=== PATIENT | male | born 1960 | race Caucasian/White ===

== ENCOUNTER 2016-11-24 18:33 | Inpatient (IN) | payer MEDICAID ==
[2016-11-24] MEDS: HYDROmorphONE/DILAUDID 6 MG/30 ML PCA IV PRN (02:00)
[2016-11-24] MEDS ORDERED: NS 1,000 ML IV ONE ×2 (18:57→20:05)
[2016-11-24] MEDS ORDERED: fentaNYL 100 MCG/2 ML INJ IVP ONE ×2 (18:58→20:01)
[2016-11-24 19:10] LABS: % IMMATURE GRANULYOCYTES 0.3 % (0.0-1.1); ABSOLUTE IMMATURE GRANULOCYTES 0.01 10^3/uL (0.00-0.10); ADD DIFF? NO; ADD MORPH? NO; ADD SCAN? NO; ATYPICAL LYMPHOCYTE FLAG 0 (0-99); FRAGMENT RBC FLAG 0 (0-99); HEMATOCRIT 42.9 % (40.0-51.0); HEMOGLOBIN 14.6 g/dL (13.7-17.5); LEFT SHIFT FLG 0 (0-99); LIPEMIA HEMOLYSIS FLAG 90 (0-99); MEAN CELL HEMOGLOBIN 30.4 pg (27.9-34.1); MEAN CELL VOLUME 89.2 fL (81.5-99.8); MEAN PLATELET VOLUME 9.3 fL (8.7-11.7); PLATELET CLUMPS FLAG 0 (0-99); PLATELET COUNT 132 10^3/uL (150-400); RED BLOOD CELL COUNT 4.81 10^6/uL (4.40-6.38); RED CELL DISTRIBUTION WIDTH 14.9 % (11.5-15.2)
[2016-11-24] MEDS ORDERED: fentaNYL 100 MCG/2 ML INJ ONE (19:16)
[2016-11-24] MEDS ORDERED: MIDAZOLAM 2 MG/2 ML VIAL IVP ONE ×2 (19:20→19:40)
[2016-11-24] MEDS ORDERED: MIDAZOLAM 2 MG/2 ML VIAL ONE ×3 (19:21→22:21)
[2016-11-24 19:26] LABS: ANION GAP 16 mEq/L (8-16); CALCIUM 9.8 mg/dL (8.5-10.4); CARBON DIOXIDE 30 mEq/l (22-31); CHLORIDE 92 mEq/L (97-110); CREATININE 0.9 mg/dL (0.7-1.3); GLOMERULAR FILTRATION RATE > 60; GLUCOSE 108 mg/dL (70-100); SODIUM 138 mEq/L (134-144)
[2016-11-24] MEDS ORDERED: HYDROmorphONE/DILAUDID 1 MG/ML SYR IVP ONE ×4 (19:45→21:55)
[2016-11-24] MEDS ORDERED: HYDROmorphONE/DILAUDID 1 MG/ML SYR ONE ×2 (19:45→21:55)
[2016-11-24 20:04] LABS: INR 1.07 (0.83-1.16); PROTIME(PATIENT) 13.7 SEC (12.0-15.0)
[2016-11-24 20:05] LABS: APTT 31.7 SEC (23.0-38.0)
--- NOTE | 2016-11-24 20:06 | UCPHY ---
H & P Patient Type: Established Chief Complaint Nursing Narrative: UNABLE TO REDUCE HERNIA, HAS HAD FOR 2 HRS. LAST EPISODE LIKE THIS WAS 2 YR AGO. HAS THIS HERNIA CONSTANTLY Time Seen by Provider: 11/24/16 18:47 HPI/ROS: This pt. 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 He has had this hernia for years. He has been holding off on repair because he is on the transplant list for liver transplant due to hepatitis C related cirrhosis. He has mild to moderate ascites at baseline with no recent changes. His last meal was at 4:00 p.m. tonight. ROS: No fevers. Mild nausea but no vomiting. He reports 2-4 loose stools a day on lactulose. 10 point ROS is otherwise negative. Source: Patient Exam Limitations: No limitations - Personal History Current Tetanus/Diphtheria Vaccine: Yes Tetanus Vaccine Date: 2008 - Medical/Surgical History PMH: Former IVDA hep C-no illicit drug use for several years Hx Asthma: No Hx Chronic Respiratory Disease: No Hx Diabetes: No Hx Cardiac Disease: No Hx Renal Disease: No Hx Cirrhosis: Yes Hx Alcoholism: No Hx HIV/AIDS: No Hx Splenectomy or Spleen Trauma: No Other PMH: Hep C-RESOLVED 2013, insomnia, enchephalopathy, on liver transplant list, ulcerative colitis,UMB HERNIA, - Family History Significant Family History: No pertinent family hx - Social History Smoking Status: Never smoked Alcohol Use: None Drug Use: None - Physical Exam Exam: General Appearance: Alert, no distress. Eyes: Pupils equal and round no pallor or injection. ENT, Mouth: Mucous membranes moist. Respiratory: There are no retractions, lungs are clear to auscultation. Cardiovascular: Regular rate and rhythm. Gastrointestinal: Normoactive, soft, patient has a 12 x 9 cm bulge that is softball size and moderately tender. This is periumbilical extending to the left of the umbilicus. No significant erythema associated with this. No ecchymosis. Neurological: Alert. No focal deficits Skin: Warm and dry, no rashes. Musculoskeletal: Neck is supple nontender. Extremities are symmetrical, full range of motion. Psychiatric: Mood and affect are normal DIFFERENTIAL DIAGNOSIS: After history and physical exam differential diagnosis was considered for large hernia, incarcerated hernia Constitutional: Initial Vital Signs Temperature (C) 36.3 C 11/24/16 18:39 Heart Rate 72 11/24/16 18:39 Respiratory Rate 22 H 11/24/16 18:39 Blood Pressure 131/89 H 11/24/16 18:39 O2 Sat (%) 97 11/24/16 18:39 O2 Delivery Mode Room Air Allergies/Adverse Reactions: No Known Allergies Allergy (Verified 11/24/16 18:37) Home Medications: Medication Instructions Recorded Zolpidem Tartrate [Ambien 5MG (*)] 5 - 10 mg PO HS PRN #10 tab 03/14/12 sulfaSALAzine [Azulfidine 500 MG 2,000 mg PO Q12 #120 tab 03/14/12 (*)] Lasix 03/22/15 Oxymorphone HCl 03/22/15 LACTULOSE 11/24/16 Medical Decision Making Procedures: Procedure: Attempt at hernia reduction. After verbal consent, Patient is placed in the supine position with legs elevated, placed on a monitor and given IV analgesia-over 0.5 hour. Received a total of 200 mg of fentanyl 1 mg of Dilaudid and 4 mg versed. He remained conversational throughout the procedure. I applied steady pressure with both hands over the hernia with minimal amount of bowel reduced prior to reaching up point of stasis with no further bowel reduction in the patient with exquisite tenderness despite the medications. There were no complications but was unable to reduce the patient's hernia despite 30 minutes of steady manual pressure ED Course/Re-evaluation: IV, monitor-attempted reduction-procedure as above Patient is agreeable to admission for his apparent incarcerated hernia. I spoke with Corinne Ruiz-surgeon on-call who accepts the patient for transfer requests that goes through the emergency department at [facility]. I spoke with Dr. lAon Montgomery emergency physician at [facility] who accepts the patient for transfer - Data Points Laboratory Results: Laboratory Results 11/24/16 19:03 11/24/16 19:03 11/24/16 19:03 WBC 3.82 10^3/uL (3.80-9.50) RBC 4.81 10^6/uL (4.40-6.38) Hgb 14.6 g/dL (13.7-17.5) Hct 42.9 % (40.0-51.0) MCV 89.2 fL (81.5-99.8) MCH 30.4 pg (27.9-34.1) MCHC 34.0 g/dL (32.4-36.7) RDW 14.9 % (11.5-15.2) Plt Count 132 L 10^3/uL (150-400) MPV 9.3 fL (8.7-11.7) Neut % (Auto) 64.0 % (39.3-74.2) Lymph % (Auto) 19.1 % (15.0-45.0) [place]oux % (Auto) 13.4 H % (4.5-13.0) Eos % (Auto) 2.9 % (0.6-7.6) Baso % (Auto) 0.3 % (0.3-1.7) Nucleat RBC Rel Count 0.0 % (0.0-0.2) Absolute Neuts (auto) 2.45 10^3/uL (1.70-6.50) Absolute Lymphs (auto) 0.73 L 10^3/uL (1.00-3.00) Absolute Monos (auto) 0.51 10^3/uL (0.30-0.80) Absolute Eos (auto) 0.11 10^3/uL (0.03-0.40) Absolute Basos (auto) 0.01 L 10^3/uL (0.02-0.10) Absolute Nucleated RBC 0.00 10^3/uL (0-0.01) Immature Gran % 0.3 % (0.0-1.1) Immature Gran # 0.01 10^3/uL (0.00-0.10) PT 13.7 SEC (12.0-15.0) INR 1.07 (0.83-1.16) APTT 31.7 SEC (23.0-38.0) Sodium 138 mEq/L (134-144) Potassium 4.0 mEq/L (3.5-5.2) Chloride 92 L mEq/L (97-110) Carbon Dioxide 30 mEq/l (22-31) Anion Gap 16 mEq/L (8-16) BUN 14 mg/dL (7-23) Creatinine 0.9 mg/dL (0.7-1.3) Estimated GFR > 60 Glucose 108 H mg/dL (70-100) Calcium 9.8 mg/dL (8.5-10.4) Total Bilirubin 0.9 mg/dL (0.1-1.4) Conjugated Bilirubin 0.7 H mg/dL (0.0-0.5) Unconjugated Bilirubin 0.2 mg/dL (0.0-1.1) AST 39 IU/L (17-59) ALT 39 IU/L (21-72) Alkaline Phosphatase 184 H IU/L (38-126) Total Protein 8.8 H g/dL (6.3-8.2) Albumin 4.3 g/dL (3.5-5.0) Medications Given: Discontinued Medications Fentanyl (Sublimaze) 100 mcg IVP EDNOW ONE Stop: 11/24/16 18:59 Last Admin: 11/24/16 19:00 Dose: 100 mcg Fentanyl (Sublimaze) 100 mcg IVP EDNOW ONE Stop: 11/24/16 20:02 Last Admin: 11/24/16 19:15 Dose: 100 mcg Hydromorphone HCl (Dilaudid) 1 mg IVP EDNOW ONE Stop: 11/24/16 19:46 Last Admin: 11/24/16 19:45 Dose: 1 mg Sodium Chloride (Ns) 1,000 mls @ 0 mls/hr IV ONCE ONE PRN Reason: Wide Open Stop: 11/24/16 18:58 Last Admin: 11/24/16 19:00 Dose: 1,000 mls Sodium Chloride (Ns) 1,000 mls @ 0 mls/hr IV ONCE ONE PRN Reason: Wide Open Stop: 11/24/16 20:06 Last Admin: 11/24/16 19:50 Dose: 1,000 mls Midazolam HCl (Versed) 2 mg IVP ONCE ONE Stop: 11/24/16 19:21 Last Admin: 11/24/16 19:20 Dose: 2 mg Midazolam HCl (Versed) 2 mg IVP ONCE ONE Stop: 11/24/16 19:41 Last Admin: 11/24/16 19:40 Dose: 2 mg Departure - Departure Disposition: Home, Routine, Self-Care Clinical Impression: Incarcerated hernia Hepatitis C virus Qualifiers: Viral hepatitis chronicity: chronic Hepatic coma status: without hepatic coma Qualifier Code: (B18.2) Chronic viral hepatitis C Condition: Fair Referrals: [facility],. [Primary Care Provider] - As per Instructions - PQRS PQRS Measurement: NA
[2016-11-24 20:10] LABS: ALBUMIN 4.3 g/dL (3.5-5.0); BILIRUBIN,TOTAL 0.9 mg/dL (0.1-1.4); BILIRUBIN-CONJUGATED 0.7 mg/dL (0.0-0.5); BILIRUBIN-UNCONJUGATED 0.2 mg/dL (0.0-1.1); TOTAL PROTEIN 8.8 g/dL (6.3-8.2)
[2016-11-24] MEDS ORDERED: ERTAPENEM 1 GM in NS 100 ML IV ONE (22:01)
[2016-11-24] MEDS ORDERED: PROPOFOL/EMULSION 500 MG/50 ML BOTTLE IV ONE (22:04)
[2016-11-24] MEDS ORDERED: fentaNYL 250 MCG/5 ML INJ ONE (22:04)
[2016-11-24] MEDS ORDERED: ROCURONIUM 50 MG/5 ML VIAL ONE ×2 (22:11→23:28)
[2016-11-24] MEDS ORDERED: SUCCINYLCHOLINE CHLORIDE*ANESTHESIA ONLY*200 MG/10 ML SYR IVP ONE (22:11)
[2016-11-24] MEDS ORDERED: GLYCOPYRROLATE 0.2 MG/1 ML VIAL ONE (22:11)
[2016-11-24] MEDS ORDERED: NEOSTIGMINE METHYLSULFATE 5 MG/5 ML SYR ONE (22:11)
[2016-11-24] MEDS ORDERED: ONDANSETRON 4 MG/2 ML VIAL ONE (22:11)
[2016-11-24] MEDS ORDERED: LIDOCAINE 2% 5 ML SDV ONE (22:11)
[2016-11-24] MEDS ORDERED: METOCLOPRAMIDE 10 MG/2 ML VIAL ONE (22:11)
[2016-11-24] MEDS ORDERED: ONDANSETRON 4 MG/2 ML VIAL IVP PRN (22:25)
[2016-11-24] MEDS ORDERED: NALOXONE HCL 0.4 MG/ML INJ IVP PRN (22:25)
[2016-11-24] MEDS ORDERED: HYDROmorphONE/DILAUDID 1 MG/ML SYR IVP PRN (22:30)
[2016-11-24] MEDS ORDERED: PROTOCOL MAGNESIUM 1 DOSE IV PRN (22:31)
[2016-11-24] MEDS ORDERED: PROTOCOL POTASSIUM 1 DOSE MISC PRN (22:31)
--- NOTE | 2016-11-24 23:13 | GHP ---
[f rep st] HISTORY AND PHYSICAL DATE OF ADMISSION: 11/24/2016 HISTORY OF PRESENT ILLNESS: Jose is a 55-year-old man with hepatitis C cirrhosis, who has had an um bilical hernia for at least 2 years. This afternoon the hernia became incarcerated and was associate d with severe pain. He presented to the urgent care center where his hernia was unable to be reduced with pain medication and sedation. His pain has been associated with nausea. PAST MEDICAL HISTORY: Ulcerative colitis, hepatitis C, cirrhosis, hypothyroidism. PAST SURGICAL HISTORY: None. MEDICATIONS: He takes levothyroxine 50 mcg daily. Ativan 10 mg 1-2 tablets nightly. Oxymorphone 30 mg twice daily and 10 mg 3 times daily. Lasix 40 mg 4 times daily. Sulfasalazine 500 mg twice maicol y. Lactulose 3-4 teaspoons daily and gabapentin 600 mg 3 times daily. ALLERGIES: He has no known drug allergies. FAMILY HISTORY: His daughter has ulcerative colitis. SOCIAL HISTORY: He is a nonsmoker. He has stopped IV drug use for several years. REVIEW OF SYSTEMS: He denied fevers, shortness of breath, chest pain, vomiting. He complains of mil d nausea and severe abdominal pain at the site of the hernia. He has chronic diarrhea from being on lactulose. PHYSICAL EXAM: VITAL SIGNS: His temperature is 36.3, pulse 74, blood pressure 142/87, respiratory r ate 20, he is saturating 99% on 2 L per nasal cannula. GENERAL: He is alert, in moderate distress, nonjaundiced. LUNGS: Clear to auscultation bilaterally. HEART: Regular rate and rhythm. ABDOMEN: Distended. He has a very large mass within an umbilical hernia which is non reducible with associa zeynep discoloration of the skin overlying the mass. LABS: His white count is 4, hematocrit 43, platelets 132. His INR is 1.1. Creatinine is 0.9, album in 4.3, bilirubin 0.9. ASSESSMENT AND PLAN: Incarcerated umbilical hernia. He will go to the operating room for exploratio n, reduction and repair of the hernia and the hernia sac contents. He may very well require a bowel resection if the viability of the bowel is compromised. At the time of exploration if this has occur red the umbilical hernia will have to be repaired primarily without the placement of mesh, due to the potential for bacterial seeding. If the bowel is viable, the hernia may be repaired with mesh. Stacey hernandez has been discussed with the patient and his friend and he will be going urgently to surgery within the hour. /[id number]/MODL
[2016-11-24] MEDS ORDERED: SKIN ADHESIVE (DERMABOND) 1 EACH TP ONE (23:54)
[2016-11-25] MEDS ORDERED: HYDROmorphONE/DILAUDID 2 MG/ML SYR ONE (00:24)
[2016-11-25] MEDS ORDERED: ONDANSETRON 4 MG/2 ML VIAL ONE (00:25)
[2016-11-25] MEDS: ZOLPIDEM TARTRATE 5 MG TAB PO PRN ×2 (01:34→20:03)
--- NOTE | 2016-11-25 02:08 | GOP ---
[f rep st] OPERATIVE REPORT DATE OF OPERATION: SURGEON: Corinne Ruiz MD PREOPERATIVE DIAGNOSIS: Incarcerated umbilical hernia. POSTOPERATIVE DIAGNOSIS: Incarcerated umbilical hernia. PROCEDURE PERFORMED: Enterectomy and repair of incarcerated umbilical hernia. FINDINGS: Ischemic bowel strangulated within an umbilical hernia. SPECIMENS: Small bowel. ESTIMATED BLOOD LOSS: 200 mL. INDICATIONS: Jose is a 55-year-old man who has had a large umbilical hernia for at least 2 years. This became incarcerated today and was associated with severe pain. On arrival to the Urgent Care Ce nt it was noted to be irreducible. He opted for exploration, reduction and repair. DESCRIPTION OF PROCEDURE: After informed consent was obtained and preoperative antibiotics were admi nistered, the patient was taken to the operating room, placed in a supine position. SCDs were placed to bilateral lower extremities. General anesthesia was administered and he was prepped and draped i n a sterile fashion. After an appropriate surgical pause, local anesthetic was injected inferior to the umbilicus and a large infraumbilical incision made using a 10 blade. Bovie electrocautery was us ed to extend this incision through the subcutaneous tissue to the fascia. Then the large hernia sac was dissected circumferentially. The umbilical stalk was dissected from the hernia sac using Bovie e lectrocautery. The hernia sac was then opened and ascites fluid suctioned from the peritoneal cavity totaling approximately 3 L. There was ischemic small bowel noted to be within the hernia sac. The hernia sac was transected circumferentially at the level of the fascia and the fascial defect extende d using Metzenbaum scissors to allow further exploration and freeing of the bowel. Approximately an 8-10 cm segment of small intestine was noted to be ischemic. Viable points of resection proximally a nd distally were chosen and windows were created in the mesentery using hemostats. A NATHALIE stapling de vice was used to transect the small bowel proximal and distal to the ischemic bowel. The mesentery w as then serially clamped, transected and ligated using 3-0 Vicryl ties. The specimen was sent to [facility] for permanent assessment. The 2 limbs of viable bowel were then aligned using 3-0 Vicryl stay sutures. Enterotomies were made in each limb and a stapled [id number] anastomosis was created. T he enterotomy was closed in 2 layers using 3-0 Vicryl running suture for the full-thickness layer and interrupted 3-0 Vicryl seromuscular Lembert sutures for the 2nd layer. The staple lines were also o versewn using interrupted 3-0 Vicryl seromuscular Lembert sutures. The anastomosis was palpated and noted to be patent. It was then reduced back into the peritoneal cavity. The fascial defect was renee sed using 0 Surgilon suture. Biologic mesh was sutured to the anterior abdominal wall fascia over th e closed fascial defect using interrupted 3-0 Surgilon sutures. The umbilical stalk was re-tacked to the anterior abdominal wall using 3-0 Vicryl suture after hemostasis was noted. The redundant skin of the umbilicus was excised and the skin was closed in 2 layers using interrupted 3-0 Vicryl deep de rmal sutures and 4-0 Monocryl running subcuticular suture. Dermabond was applied. Once the patient is awakened from general anesthesia, he will be extubated and taken to the post anesthesia recovery u jovanny. /[id number]/MODL
[2016-11-25] MEDS: LEVOTHYROXINE 50 MCG TAB PO SCH (05:59)
[2016-11-25 06:25] LABS: % IMMATURE GRANULYOCYTES 0.1 % (0.0-1.1); ABSOLUTE IMMATURE GRANULOCYTES 0.01 10^3/uL (0.00-0.10); ADD DIFF? NO; ADD MORPH? NO; ADD SCAN? NO; ATYPICAL LYMPHOCYTE FLAG 10 (0-99); FRAGMENT RBC FLAG 0 (0-99); HEMATOCRIT 43.3 % (40.0-51.0); HEMOGLOBIN 14.5 g/dL (13.7-17.5); LEFT SHIFT FLG 30 (0-99); LIPEMIA HEMOLYSIS FLAG 80 (0-99); MEAN CELL HEMOGLOBIN 30.2 pg (27.9-34.1); MEAN CELL HEMOGLOBIN CONCENTR. 33.5 g/dL (32.4-36.7); MEAN CELL VOLUME 90.2 fL (81.5-99.8); MEAN PLATELET VOLUME 9.2 fL (8.7-11.7); PLATELET CLUMPS FLAG 0 (0-99); PLATELET COUNT 119 10^3/uL (150-400); RED CELL DISTRIBUTION WIDTH 14.8 % (11.5-15.2)
[2016-11-25] MEDS ORDERED: DIAZEPAM 10 MG/2 ML SYR IVP PRN (06:39)
[2016-11-25 06:52] LABS: ANION GAP 12 mEq/L (8-16); CALCIUM 8.9 mg/dL (8.5-10.4); CARBON DIOXIDE 27 mEq/l (22-31); CHLORIDE 97 mEq/L (97-110); CREATININE 0.8 mg/dL (0.7-1.3); GLOMERULAR FILTRATION RATE > 60; GLUCOSE 177 mg/dL (70-100); MAGNESIUM 1.9 mg/dL (1.6-2.3); POTASSIUM 4.1 mEq/L (3.5-5.2); SODIUM 136 mEq/L (134-144)
[2016-11-25] MEDS: HYDROmorphONE/DILAUDID 6 MG/30 ML PCA IV PRN ×4 (07:45→14:24)
[2016-11-25] MEDS ORDERED: LORazepam 2 MG/ML INJ IVP PRN (07:56)
--- NOTE | 2016-11-25 09:04 | GCON ---
[f rep st] CONSULTATION REASON FOR CONSULTATION: Medical management. HISTORY OF PRESENT ILLNESS: A 55-year-old male with a history of hepatitis C and cirrhosis, who pres ents with acute abdominal pain. The patient describes sudden onset of severe abdominal pain a couple of hours before he presented to the emergency department. It was associated with hernia that he was aware of. Patient describes simply not disimpacting it quickly enough. Presented to the emergency department with severe pain he was not able to control with associated nausea. No vomiting. The pat ient denies any preceding shortness of breath, chest pain, lightheadedness, vision changes, dysphagia , vomiting. He has been running a little constipated preceding this event. Denies any melena or hem atochezia, dysuria, hematuria. PAST MEDICAL HISTORY: 1. Hepatitis C. 2. Cirrhosis secondary to hepatitis C. 3. History of ulcerative colitis. 4. Hypothyroidism. 5. History of a pulmonary embolism following knee surgery. 6. History of alcoholism and heroin addiction. Sober for many years. SOCIAL HISTORY: Patient is . Sober. No tobacco, alcohol or illicit drugs. FAMILY HISTORY: Positive for heart disease. REVIEW OF SYSTEMS: A 10-point review of systems is negative with the exception of that reported in t he HPI. PHYSICAL EXAMINATION: VITAL SIGNS: Blood pressure 130/80, heart rate 55, respiratory rate 18, 98% o n 2 L. GENERAL: This is a thin-appearing male in mild distress. HEENT: Notable for dry mucous memb ranes. Eye exam is negative for any icterus. CARDIAC: Patient is regular rate and rhythm. PULMONA RY: Clear to auscultation bilaterally. GASTROINTESTINAL: The patient has no bowel sounds. Abdomen is markedly tender postoperative. MUSCULOSKELETAL: Negative for any lower extremity edema. SKIN: Negative for any rashes. NEUROLOGIC: Patient is alert and oriented x3. PSYCHIATRIC: He is pleasa nt and cooperative on interview and examination. LABORATORY DATA: Preoperative data: White count 3.8, hematocrit 42.9, platelets of 132. INR 1.07. Creatinine 0.9, alkaline phosphatase 184, AST 33, ALT 39. Telemetry in the emergency department which I personally reviewed and interpreted showed sinus rhythm . ASSESSMENT AND PLAN: This is a 55-year-old male with an incarcerated hernia presenting with abdomina l pain. 1. Acute incarceration of the hernia. Patient was taken immediately to the operating room for enter ectomy and repair of the umbilical hernia. 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 Will continue IV fluid resuscitation, his n.p.o. status and follow General Surgery's l ead on his postsurgical management. 2. Cirrhosis. Patient's medical management has been well titrated over the course of the last coupl e of years on diuretics. Will hold these when the medications are reconciled, as well as hold his la ctulose as he is currently n.p.o. 3. Ulcerative colitis. Patient is on p.o. medications for this as well. We can continue these when he is cleared for oral medications by Surgery. 4. Prophylaxis when cleared by Surgery. 5. Diet: N.p.o. DISPOSITION: I expect greater than 2 midnights as the patient has only recently come out of the oper ating room with marked pain. Will need to be slowly titrated to an oral diet with effective pain con trol. I have discussed the case with the RN this morning. Thank you for the consultation. Will follow along. /[id number]/MODL
[2016-11-25] MEDS: LR 1,000 ML IV SCH ×2 (09:51→17:49)
--- NOTE | 2016-11-25 13:17 | SOAPPROG ---
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 no flatus Objective: Vital Signs Temp Pulse Resp BP Pulse Ox 36.6 C 71 16 138/85 H 97 11/25/16 11:14 11/25/16 11:14 11/25/16 11:14 11/25/16 11:14 11/25/16 11:14 Laboratory Results 11/25/16 06:14 11/25/16 06:14 11/24/16 11/25/16 11/26/16 05:59 05:59 05:59 Intake Total 800 Output Total 500 400 Balance 300 -400 PT 13.7 SEC (12.0-15.0) 11/24/16 19:03 INR 1.07 (0.83-1.16) 11/24/16 19:03 Physical Exam - Physical Exam General Appearance: alert Respiratory: lungs clear Cardiac/Chest: regular rate, rhythm Abdomen: soft, distended, other (hypoactive bowel sounds, dressing C/D/I) ICD10 Worksheet Patient Problems: Problems Problem Status Diagnosed Hepatitis C virus Acute Incarcerated hernia Acute
[2016-11-25] MEDS: DIAZEPAM 10 MG/2 ML SYR IVP PRN ×2 (13:50→20:03)
[2016-11-25 19:59] LABS: POTASSIUM 4.4 mEq/L (3.5-5.2)
[2016-11-26] MEDS: ZOLPIDEM TARTRATE 5 MG TAB PO PRN ×2 (01:19→21:32)
[2016-11-26] MEDS: HYDROmorphONE/DILAUDID 6 MG/30 ML PCA IV PRN ×5 (01:25→21:45)
[2016-11-26] MEDS: LR 1,000 ML IV SCH ×2 (01:25→09:39)
[2016-11-26 06:19] LABS: % IMMATURE GRANULYOCYTES 0.4 % (0.0-1.1); ABSOLUTE IMMATURE GRANULOCYTES 0.02 10^3/uL (0.00-0.10); ADD DIFF? NO; ADD MORPH? NO; ADD SCAN? NO; ATYPICAL LYMPHOCYTE FLAG 0 (0-99); FRAGMENT RBC FLAG 0 (0-99); HEMATOCRIT 40.9 % (40.0-51.0); HEMOGLOBIN 13.7 g/dL (13.7-17.5); LEFT SHIFT FLG 10 (0-99); LIPEMIA HEMOLYSIS FLAG 80 (0-99); MEAN CELL HEMOGLOBIN 30.4 pg (27.9-34.1); MEAN CELL HEMOGLOBIN CONCENTR. 33.5 g/dL (32.4-36.7); MEAN CELL VOLUME 90.9 fL (81.5-99.8); PLATELET CLUMPS FLAG 0 (0-99); PLATELET COUNT 111 10^3/uL (150-400); RED CELL DISTRIBUTION WIDTH 14.8 % (11.5-15.2)
[2016-11-26] MEDS: LEVOTHYROXINE 50 MCG TAB PO SCH (06:31)
[2016-11-26 07:04] LABS: ANION GAP 8 mEq/L (8-16); CALCIUM 9.1 mg/dL (8.5-10.4); CARBON DIOXIDE 28 mEq/l (22-31); CHLORIDE 98 mEq/L (97-110); CREATININE 0.7 mg/dL (0.7-1.3); GLOMERULAR FILTRATION RATE > 60; GLUCOSE 115 mg/dL (70-100); POTASSIUM 4.3 mEq/L (3.5-5.2); SODIUM 134 mEq/L (134-144)
[2016-11-26] MEDS: DIAZEPAM 10 MG/2 ML SYR IVP PRN ×3 (08:26→21:31)
[2016-11-26] MEDS ORDERED: LACTULOSE 20 GM/30 ML UDCUP PO PRN (10:57)
--- NOTE | 2016-11-26 12:45 | SOAPPROG ---
[facility] Progress Note Assessment/Plan: Assessment: s/p enterectomy and umbilical hernia repair for strangulated hernia cirrhosis Plan: clear liquids resume lactulose and diuretics add toradol for pain 11/26/16 12:43 Objective: Vital Signs Temp Pulse Resp BP Pulse Ox 36.9 C 69 16 139/85 H 96 11/26/16 08:19 11/26/16 08:19 11/26/16 08:19 11/26/16 08:19 11/26/16 08:19 Laboratory Results 11/26/16 05:54 11/26/16 05:54 11/25/16 11/26/16 11/27/16 05:59 05:59 05:59 Intake Total 800 3158 Output Total 500 1150 Balance 300 2008 PT 13.7 SEC (12.0-15.0) 11/24/16 19:03 INR 1.07 (0.83-1.16) 11/24/16 19:03 Physical Exam - Physical Exam General Appearance: alert Respiratory: lungs clear Cardiac/Chest: regular rate, rhythm Abdomen: soft, distended, other (hypoactive bowel sounds, incision without erythema) ICD10 Worksheet Patient Problems: Problems Problem Status Diagnosed Hepatitis C virus Acute Incarcerated hernia Acute
[2016-11-26] MEDS: SPIRONOLACTONE 25 MG TAB PO SCH (14:08)
[2016-11-26] MEDS: FUROSEMIDE 40 MG TAB PO SCH (14:09)
[2016-11-26] MEDS: GABAPENTIN 300 MG CAP PO PRN (14:09)
--- NOTE | 2016-11-26 15:26 | HOSPPROG ---
Hospitalist Progress Note Assessment/Plan: This is a 55-year-old male with history of hepatitis-C, cirrhosis, and ulcerative colitis who is admitted by General surgery on 11/23/2016 with an incarcerated hernia # hepatitis-C with cirrhosis -will resume the patient's home diuretics and monitor blood pressure and renal function # Ulcerative colitis -resume sulfa Stelazine once taking p.o. was # with postoperative day 2 incarcerated hernia repair -continue routine postop care per Dr. Ruiz Subjective: the patient continues to have abdominal pain. He is tolerating some sips of water. He denies any fevers or chills. He is having some flatus but denies any diarrhea or bowel movements. Objective: Vital Signs Temp Pulse Resp BP Pulse Ox 36.6 C 72 16 137/84 H 95 11/26/16 12:40 11/26/16 12:40 11/26/16 12:40 11/26/16 12:40 11/26/16 12:40 Laboratory Results 11/26/16 05:54 11/26/16 05:54 11/25/16 11/26/16 11/27/16 05:59 05:59 05:59 Intake Total 800 3158 Output Total 500 1150 Balance 300 2008 PT 13.7 SEC (12.0-15.0) 11/24/16 19:03 INR 1.07 (0.83-1.16) 11/24/16 19:03 - Physical Exam Constitutional: no apparent distress, appears nourished, not in pain Ears, Nose, Mouth, Throat: moist mucous membranes, hearing normal, ears appear normal, no oral mucosal ulcers Cardiovascular: regular rate and rhythym, no murmur, rub, or gallop Respiratory: no respiratory distress, no rales or rhonchi, clear to auscultation Gastrointestinal: distension, other ( Hypoactive bowel sounds), No guarding, No rebound Skin: no rashes or abrasions, no fluctuance, no induration ICD10 Worksheet Patient Problems: Problems Problem Status Diagnosed Hepatitis C virus Acute Incarcerated hernia Acute
[2016-11-26] MEDS: KETOROLAC 15 MG/1 ML SDV IVP SCH (18:05)
[2016-11-27] MEDS: KETOROLAC 15 MG/1 ML SDV IVP SCH ×3 (00:08→11:14)
[2016-11-27] MEDS: DIAZEPAM 10 MG/2 ML SYR IVP PRN ×2 (02:24→08:07)
[2016-11-27] MEDS: ZOLPIDEM TARTRATE 5 MG TAB PO PRN ×2 (02:24→20:00)
[2016-11-27 05:47] LABS: % IMMATURE GRANULYOCYTES 0.5 % (0.0-1.1); ABSOLUTE IMMATURE GRANULOCYTES 0.02 10^3/uL (0.00-0.10); ADD DIFF? NO; ADD MORPH? NO; ADD SCAN? NO; ATYPICAL LYMPHOCYTE FLAG 20 (0-99); FRAGMENT RBC FLAG 0 (0-99); HEMATOCRIT 40.1 % (40.0-51.0); HEMOGLOBIN 13.6 g/dL (13.7-17.5); LEFT SHIFT FLG 10 (0-99); LIPEMIA HEMOLYSIS FLAG 90 (0-99); MEAN CELL HEMOGLOBIN 30.8 pg (27.9-34.1); MEAN CELL HEMOGLOBIN CONCENTR. 33.9 g/dL (32.4-36.7); MEAN CELL VOLUME 90.7 fL (81.5-99.8); MEAN PLATELET VOLUME 9.6 fL (8.7-11.7); PLATELET CLUMPS FLAG 0 (0-99); PLATELET COUNT 94 10^3/uL (150-400); RED BLOOD CELL COUNT 4.42 10^6/uL (4.40-6.38); RED CELL DISTRIBUTION WIDTH 14.6 % (11.5-15.2)
[2016-11-27 06:03] LABS: ANION GAP 7 mEq/L (8-16); CALCIUM 8.9 mg/dL (8.5-10.4); CARBON DIOXIDE 28 mEq/l (22-31); CHLORIDE 98 mEq/L (97-110); CREATININE 0.8 mg/dL (0.7-1.3); GLOMERULAR FILTRATION RATE > 60; GLUCOSE 100 mg/dL (70-100); POTASSIUM 4.3 mEq/L (3.5-5.2); SODIUM 133 mEq/L (134-144)
[2016-11-27] MEDS: LEVOTHYROXINE 50 MCG TAB PO SCH (06:07)
[2016-11-27] MEDS: HYDROmorphONE/DILAUDID 6 MG/30 ML PCA IV PRN ×2 (07:59→11:14)
[2016-11-27] MEDS: FUROSEMIDE 40 MG TAB PO SCH (07:59)
[2016-11-27] MEDS: SPIRONOLACTONE 25 MG TAB PO SCH (07:59)
[2016-11-27] MEDS: GABAPENTIN 300 MG CAP PO PRN ×3 (08:07→20:00)
--- NOTE | 2016-11-27 12:45 | SOAPPROG ---
[facility] Progress Note Assessment/Plan: Assessment: s/p enterectomy and umbilical hernia repair for strangulated hernia cirrhosis Plan: regular diet oral analgesia 11/27/16 12:43 Subjective: tolerated clears ambulated this morning Objective: Vital Signs Temp Pulse Resp BP Pulse Ox 36.4 C 85 16 122/94 H 96 11/27/16 11:06 11/27/16 11:06 11/27/16 11:06 11/27/16 11:06 11/27/16 11:06 Laboratory Results 11/27/16 04:58 11/27/16 04:58 11/26/16 11/27/16 11/28/16 05:59 05:59 05:59 Intake Total 3158 400 1634 Output Total 1150 280 Balance 2007 120 1634 PT 13.7 SEC (12.0-15.0) 11/24/16 19:03 INR 1.07 (0.83-1.16) 11/24/16 19:03 Physical Exam - Physical Exam General Appearance: alert Respiratory: lungs clear Cardiac/Chest: regular rate, rhythm Abdomen: normal bowel sounds, soft, distended, other (incision healing well, no ascites leak) ICD10 Worksheet Patient Problems: Problems Problem Status Diagnosed Hepatitis C virus Acute Incarcerated hernia Acute
[2016-11-27] MEDS ORDERED: morphINE SR 30 MG TAB PO SCH (13:00)
[2016-11-27] MEDS ORDERED: OXYMORPHONE HCL 10 MG PO PRN (13:21)
--- NOTE | 2016-11-27 14:22 | HOSPPROG ---
Hospitalist Progress Note Assessment/Plan: This is a 55-year-old male with history of hepatitis-C, cirrhosis, and ulcerative colitis who is admitted by General surgery on 11/23/2016 with an incarcerated hernia # hepatitis-C with cirrhosis -will resume the patient's home diuretics and monitor blood pressure and renal function # Ulcerative colitis -resume sulfasalazine once taking p.o. #h/o chronic pain/chronic continuous opioid dependency -resume home dose of opana # with postoperative day 2 incarcerated hernia repair -continue routine postop care per Dr. Ruiz Subjective: tolerating diet. reports flatus. no fever or chills. pain controlled Objective: Vital Signs Temp Pulse Resp BP Pulse Ox 36.4 C 85 16 122/94 H 96 11/27/16 11:06 11/27/16 11:06 11/27/16 11:06 11/27/16 11:06 11/27/16 11:06 Laboratory Results 11/27/16 04:58 11/27/16 04:58 11/26/16 11/27/16 11/28/16 05:59 05:59 05:59 Intake Total 3158 400 1634 Output Total 1150 280 Balance 2007 120 1634 PT 13.7 SEC (12.0-15.0) 11/24/16 19:03 INR 1.07 (0.83-1.16) 11/24/16 19:03 - Physical Exam Constitutional: no apparent distress, not in pain, chronically ill appearing Cardiovascular: regular rate and rhythym, no murmur, rub, or gallop Respiratory: no respiratory distress, no rales or rhonchi, clear to auscultation Gastrointestinal: distension, other (hypoactive bowel sounds), No guarding, No rebound Neurologic: AAOx3, sensation intact bilaterally ICD10 Worksheet Patient Problems: Problems Problem Status Diagnosed Hepatitis C virus Acute Incarcerated hernia Acute
[2016-11-27] MEDS: morphINE SR 30 MG TAB PO SCH ×2 (15:43→22:41)
[2016-11-27] MEDS: IBUPROFEN 600 MG TAB PO SCH ×2 (15:43→20:00)
[2016-11-27] MEDS: DIAZEPAM 2 MG TAB PO PRN (20:00)
[2016-11-27] MEDS ORDERED: CALCIUM CARBONATE 500 MG CHEWABLE TAB PO PRN (20:18)
[2016-11-27] MEDS ORDERED: FAMOTIDINE 20 MG TAB PO PRN (20:18)
[2016-11-28] MEDS: ZOLPIDEM TARTRATE 5 MG TAB PO PRN ×3 (00:24→23:54)
[2016-11-28] MEDS: GABAPENTIN 300 MG CAP PO PRN ×3 (05:03→21:09)
[2016-11-28] MEDS: IBUPROFEN 600 MG TAB PO SCH ×4 (05:03→21:09)
[2016-11-28] MEDS: LEVOTHYROXINE 50 MCG TAB PO SCH (05:04)
[2016-11-28] MEDS: DIAZEPAM 2 MG TAB PO PRN ×3 (05:04→21:09)
--- NOTE | 2016-11-28 07:58 | SOAPPROG ---
SOAP Progress Note Assessment/Plan: Assessment: s/p enterectomy and umbilical hernia repair for strangulated hernia cirrhosis cellulitis of wound Plan: scheduled lactulose augmentin for wound cellulitis continue ambulation 11/28/16 07:56 Subjective: no BM but hasn't been receiving any lactulose ambulating Objective: Vital Signs Temp Pulse Resp BP Pulse Ox 36.4 C 68 18 94/59 L 94 11/28/16 07:44 11/28/16 07:44 11/28/16 07:44 11/28/16 07:44 11/28/16 07:44 Laboratory Results 11/27/16 04:58 11/27/16 04:58 11/27/16 11/28/16 11/29/16 05:59 05:59 05:59 Intake Total 400 3084 Output Total 280 400 Balance 120 3084 -400 PT 13.7 SEC (12.0-15.0) 11/24/16 19:03 INR 1.07 (0.83-1.16) 11/24/16 19:03 Physical Exam - Physical Exam General Appearance: alert Respiratory: lungs clear Cardiac/Chest: regular rate, rhythm Abdomen: normal bowel sounds, distended, other (incision with mild erythema surrounding it, no ascites leak) ICD10 Worksheet Patient Problems: Problems Problem Status Diagnosed Hepatitis C virus Acute Incarcerated hernia Acute
[2016-11-28] MEDS: AMOX/CLAVULANATE 500/125 MG TAB PO SCH ×2 (08:42→21:08)
[2016-11-28] MEDS: LACTULOSE 20 GM/30 ML UDCUP PO SCH ×3 (08:42→21:10)
[2016-11-28] MEDS: SPIRONOLACTONE 25 MG TAB PO SCH (08:42)
[2016-11-28] MEDS: morphINE SR 30 MG TAB PO SCH ×3 (08:42→21:09)
[2016-11-28] MEDS: FUROSEMIDE 40 MG TAB PO SCH (08:42)
--- NOTE | 2016-11-28 14:39 | HOSPPROG ---
Hospitalist Progress Note Assessment/Plan: This is a 55-year-old male with history of hepatitis-C, cirrhosis, and ulcerative colitis who is admitted by General surgery on 11/23/2016 with an incarcerated hernia # hepatitis-C with cirrhosis -will resume the patient's home diuretics and monitor blood pressure and renal function # Ulcerative colitis -resume sulfasalazine once taking p.o. #h/o chronic pain/chronic continuous opioid dependency -cont mscontin/morphineIR as ordered # postoperative day 3 incarcerated hernia repair -continue routine postop care per Dr. Ruiz -augmentin ordered for possible wound infection Subjective: pain controlled. +flatus. tolerating diet Objective: Vital Signs Temp Pulse Resp BP Pulse Ox 36.5 C 73 18 110/74 96 11/28/16 11:57 11/28/16 11:57 11/28/16 11:57 11/28/16 11:57 11/28/16 11:57 Laboratory Results 11/27/16 04:58 11/27/16 04:58 11/27/16 11/28/16 11/29/16 05:59 05:59 05:59 Intake Total 400 3084 Output Total 280 400 Balance 120 3084 -400 PT 13.7 SEC (12.0-15.0) 11/24/16 19:03 INR 1.07 (0.83-1.16) 11/24/16 19:03 - Physical Exam Constitutional: no apparent distress, appears nourished, not in pain Cardiovascular: regular rate and rhythym, no murmur, rub, or gallop Respiratory: no respiratory distress, no rales or rhonchi, clear to auscultation Gastrointestinal: distension, other (hypoactive bowel sounds), No guarding, No rebound ICD10 Worksheet Patient Problems: Problems Problem Status Diagnosed Hepatitis C virus Acute Incarcerated hernia Acute
[2016-11-29] MEDS: DIAZEPAM 2 MG TAB PO PRN ×2 (03:55→09:56)
[2016-11-29] MEDS: LEVOTHYROXINE 50 MCG TAB PO SCH (06:12)
[2016-11-29] MEDS: IBUPROFEN 600 MG TAB PO SCH (06:12)
[2016-11-29 07:47] VITALS: BP 106/76; O2SAT 94
[2016-11-29] MEDS: GABAPENTIN 300 MG CAP PO PRN (07:58)
[2016-11-29] MEDS: morphINE SR 30 MG TAB PO SCH (07:58)
[2016-11-29] MEDS: FUROSEMIDE 40 MG TAB PO SCH (07:59)
[2016-11-29] MEDS: AMOX/CLAVULANATE 500/125 MG TAB PO SCH (07:59)
[2016-11-29] MEDS: SPIRONOLACTONE 25 MG TAB PO SCH (07:59)
--- NOTE | 2016-11-29 09:22 | SOAPPROG ---
DELANEY Progress Note Assessment/Plan: Assessment:s/p enterectomy + repair umbilical hernia doing well without complications thus far I am not convinced that he has a wound infection cirrhosis/HepC/chronic pain Plan:o.k to discharge home from surgical viewpoint FU Dr. Ruzi next week discussed restricted activity 11/29/16 09:20 11/29/16 09:23 Subjective: feeling better/4 BM's yesterday tolerating diet poor pain control/uses oxymorphone at home Objective: Vital Signs Temp Pulse Resp BP Pulse Ox 36.9 C 80 18 106/76 94 11/29/16 07:45 11/29/16 07:45 11/29/16 07:45 11/29/16 07:45 11/29/16 07:45 Laboratory Results 11/27/16 04:58 11/27/16 04:58 11/28/16 11/29/16 11/30/16 05:59 05:59 05:59 Intake Total 3084 1250 Output Total 400 Balance 3084 850 PT 13.7 SEC (12.0-15.0) 11/24/16 19:03 INR 1.07 (0.83-1.16) 11/24/16 19:03 Physical Exam - Physical Exam General Appearance: mild distress, cachetic (chronically ill appearing), thin Abdomen: normal bowel sounds, soft, distended, other (surgical incision with moderate bruising, no drainage/warmth) ICD10 Worksheet Patient Problems: Problems Problem Status Diagnosed Hepatitis C virus Acute Incarcerated hernia Acute
[2016-11-29] MEDS: LACTULOSE 20 GM/30 ML UDCUP PO SCH (10:59)
[2016-11-29 11:07] VITALS: PULSE 101; RESP 20; TEMP 98
--- NOTE | 2016-11-29 17:11 | GDS ---
[f rep st] DISCHARGE SUMMARY DISCHARGE DIAGNOSES: 1. Incarcerated hernia, status post enterectomy and repair of umbilical hernia. 2. History of daily opioid dependence and chronic pain. 3. History of ulcerative colitis. 4. History of hepatitis C and cirrhosis. CONSULTANTS: Hospital Medicine. HOSPITAL COURSE AND STAY BY PROBLEM: 1. Incarcerated hernia: The patient was admitted by Dr. Ruiz from Surgery, who took the patient t o the operating room on 11/25/2016 for enterectomy and repair of incarcerated umbilical hernia. Pos toperatively, the patient has done well. On day of discharge, he is tolerating a regular diet and is having bowel movements. His pain is controlled. On the day prior to discharge, he had some redness over his wound, where Dr. Ruiz thought he may be developing early wound infection and was subseque ntly started on Augmentin. On day of discharge, when seen by Dr. Yanez, who is covering for Dr. Hilda quintero, he was not convinced that the patient had a wound infection, but recommended that we continue with Augmentin to complete a few more days of treatment. On day of discharge, the patient states he is f eeling well. He was instructed to monitor his wound for worsening redness or signs of infection. PHYSICAL EXAM: VITAL SIGNS: On day of discharge blood pressure 106/76, pulse of 80, respiratory rat e 18, O2 sat 94% on room air. GENERAL: No acute distress. ABDOMEN: Soft, distended normoactive carmelita wel sounds. No guarding or rebound tenderness. PROCEDURES DONE THIS HOSPITAL STAY: Enterotomy and repair of incarcerated umbilical hernia done on 01/25/[address] Ruiz. DISCHARGE MEDICATIONS: Please refer to discharge medication reconciliation in [facility] for full deta ils. Below is a preliminary list: Augmentin 875 mg b.i.d. for 4 more days. All other medications w ere continued at his usual home dosages. DISCHARGE INSTRUCTIONS: The patient was discharged from the hospital, where he should follow up with Dr. Ruiz next week. He was instructed to avoid heavy lifting and have restricted activity. /[id number]/MODL
== END 2016-11-29 12:36 | disposition home or self-care (01) | DRG 330 ==
LOC: CED 18:33 → OBSVTOIN 22:25 → F1N 11-25 01:09
PROVIDERS: ADMIT Surgery; ATTEND Family Medicine
PROC: 0WQF0ZZ Repair Abdominal Wall, Open Approach (ICD-10-PCS; principal; 2016-11-24 22:00)
PROC: 0DB80ZZ Excision of Small Intestine, Open Approach (ICD-10-PCS; principal; 2016-11-24 22:00)
DX: K42.1 Umbilical hernia with gangrene (principal); L76.82 Other postprocedural complications of skin and subcutaneous tissue; B18.2 Chronic viral hepatitis C; K74.69 Other cirrhosis of liver; K51.90 Ulcerative colitis, unspecified, without complications; E03.9 Hypothyroidism, unspecified; Z86.711 Personal history of pulmonary embolism; G89.29 Other chronic pain; F11.20 Opioid dependence, uncomplicated
CPT/HCPCS: 80048-PO; 80076-PO; 85025-PO; 85610-PO; 85730-PO; 96361-PO; 96374-PO; 96375-PO; 97001-GP; 97110-GP; 97116-GP; 97530-GP; 99215-PO; G0463-PO; J0330; J1170; J1335; J1885; J2250; J2405; J2704; J2710; J2765; J3010; Q4122

== ENCOUNTER 2016-12-01 19:36 | Observation (INO) | payer MEDICAID, OTHER ==
--- NOTE | 2016-12-01 19:45 | UCPHY ---
H & P Patient Type: Established HPI/ROS: CHIEF COMPLAINT: Cough. HISTORY OF PRESENT ILLNESS: The patient is a 55-year-old male status post hernia surgery who left the hospital 2 days ago who presents with productive cough intermittently over the last month and worsening last night. The sputum is dark green and chunky. He is not on oxygen at home but his also reports that he was hypoxic after leaving the hospital. His O2 sat on room air was 85% on arrival. He denies chest pain, dizziness, fever, nausea, vomiting, diarrhea, peripheral edema, or shortness of breath. He has been compliant with his Augmentin since the surgery. He states he has tolerated oral fluids as well as meals since the surgery. REVIEW OF SYSTEMS: Aside from elements discussed in the HPI, a comprehensive 10-point review of systems was reviewed and is negative. PAST MEDICAL HISTORY: Hernia repair, hepatitis C (resolved), cirrhosis, ulcerative colitis, encephalitis, encephalopathy, neuropathy. Patient reports a prior history of a pulmonary embolism. SOCIAL HISTORY: Here with . History of IV drug use. VITAL SIGNS: see nurse's notes. GENERAL: Cachectic, chronically ill-appearing and thin. No acute distress. HEENT: Atraumatic Eyes: PERRL, EOMI, no conjunctival injection. No icterus. Ears: TM clear bilaterally. Nose: No discharge. Mouth: dry mucous membranes. Pharynx: no erythema, no exudates, no swelling, no abscess. Uvula is midline. NECK: Supple, no adenopathy, no meningismus, no tenderness. Negative Kernig's and Brudzinski's. LUNGS: Coarse breath sounds and rhonchi in left lower/ mid lobe. No wheezes, or rales. CARDIAC: Regular rate and rhythm, no rubs, murmurs or gallops. ABDOMEN: Mildly distended. Healing surgical scar around the umbilicus. Soft, nontender, bowel sounds normal. BACK: No CVA tenderness. EXTREMITIES: Normal, no edema, FROM. NEURO: Alert and oriented, grossly nonfocal. SKIN: Warm and dry, no rash. PSYCHIATRIC: Normal mentation, no agitation. Portions of this note were transcribed by a medical safety director. I, Dr Jennifer Perez , personally performed a history, physical exam, medical decision making, and confirmed the accuracy of the information in the transcribed note. Smoking Status: Never smoked Constitutional: Initial Vital Signs Temperature (C) 37.1 C 12/01/16 20:02 Heart Rate 87 12/01/16 20:02 Respiratory Rate 20 12/01/16 20:02 Blood Pressure 127/85 H 12/01/16 20:02 O2 Sat (%) 85 L 12/01/16 20:02 O2 Delivery Mode Nasal Cannula O2 (L/minute) 3 Allergies/Adverse Reactions: No Known Allergies Allergy (Verified 12/01/16 20:06) Home Medications: Medication Instructions Recorded Zolpidem Tartrate [Ambien 5MG (*)] 5 - 10 mg PO HS PRN #10 tab 03/14/12 Furosemide [Lasix 40 MG (*)] 40 mg PO DAILY 03/22/15 Oxymorphone HCl [Opana] 10 mg PO 5XD PRN 03/22/15 Lactulose 20 gm PO TID PRN 11/24/16 Gabapentin [Neurontin 100 MG (*)] 300 - 400 mg PO TID PRN 11/25/16 Levothyroxine [Synthroid 50 mcg 50 mcg PO DAILY06 11/25/16 (*)] Spironolactone [Aldactone 25 MG 50 mg PO DAILY 11/25/16 (*)] Oxymorphone HCl [Opana ER] 30 mg PO BID 11/27/16 Amox Tr/K Clav (Augmentin) 500 mg PO Q12HRS #8 tab 11/29/16 [Augmentin 500/125 MG TAB (*)] Diazepam [Valium 2 MG (*)] 2 mg PO Q6HRS PRN #10 tab 11/29/16 Zolpidem Tartrate [Ambien 5MG (*)] 10 - 15 mg PO HS PRN #7 tab 11/29/16 Medical Decision Making - Diagnostics EKG Interpretation: 12-LEAD EKG: Please see the full report in [facility]. My interpretation: Normal sinus rhythm with occasional premature beats. Imaging: X-ray of the chest was obtained. I viewed the images myself on the PACS system. My interpretation of the images is: left lower lobe infiltrate. The radiologist interpretation is: 1. Left pleural parenchymal scarring versus small left effusion. 2. Worsening left basilar atelectasis versus superimposed pneumonia. I discussed the x-ray findings with the patient. Study: CTA of the chest. Indication: Elevated d-dimer, cough. Results: No PE. Left lower lobe effusion. The study was read by the radiologist , Dr. Jay. I viewed the images myself on the PACS system. Full radiology report: 1. No evidence of thrombopulmonary embolic disease. 2. Multifocal airspace opacities scattered throughout the right middle lobe, right lower lobe and, to a greater degree, the left lower lobe. Query evolving bronchopneumonia, viral pneumonitis, or aspiration. 3. Simple small to moderate layering left pleural effusion. 4. Moderate to large volume of ascites. ED Course/Re-evaluation: An IV was established and labs ordered. Chest x-ray, EKG ordered. 1L IV saline administered for hydration. Patient is hypoxic on room air. He will need to be admitted to the hospital. There was some difficulty establishing IV access and obtaining blood work. Patient does not meet criteria for SIRS. He has not had a fever, not tachycardic, no tachypnea, his white count is 6000. Patient's lactic acid is 1.4. He does not meet criteria for sepsis. D-dimer was ordered. D-dimer elevated at 7.05. CTA of the chest ordered. Patient's CT demonstrates no pulmonary embolism. He does have a left-sided pleural effusion as well as bilateral airspace disease. Patient has some areas of ground-glass opacification in the right lower lobe and right middle lobe which could represent early aspiration versus bronchopneumonia versus atelectasis. Patient remains hypoxic on room air. He received a dose of ertapenem. His course was discussed with Dr. Alexandrea Bonilla from the hospitalist service. Patient will be admitted to [facility]. Differential Diagnosis: Differential diagnosis for the patient's cough and hypoxemia was considered including but not limited to viral versus bacterial bronchitis, asthma, COPD, pulmonary emboli, upper respiratory infection, lower respiratory infection, and bronchospasm. Consult/Admit Bed Type: [facility] - Data Points Laboratory Results: Laboratory Results 12/01/16 21:15 12/01/16 21:15 12/01/16 21:15 WBC 6.59 10^3/uL (3.80-9.50) RBC 3.85 L 10^6/uL (4.40-6.38) Hgb 11.7 L g/dL (13.7-17.5) Hct 34.1 L % (40.0-51.0) MCV 88.6 fL (81.5-99.8) MCH 30.4 pg (27.9-34.1) MCHC 34.3 g/dL (32.4-36.7) RDW 14.2 % (11.5-15.2) Plt Count 142 L 10^3/uL (150-400) MPV 9.2 fL (8.7-11.7) Neut % (Auto) 78.2 H % (39.3-74.2) Lymph % (Auto) 8.0 L % (15.0-45.0) [place] % (Auto) 12.4 % (4.5-13.0) Eos % (Auto) 0.9 % (0.6-7.6) Baso % (Auto) 0.2 L % (0.3-1.7) Nucleat RBC Rel Count 0.0 % (0.0-0.2) Absolute Neuts (auto) 5.15 10^3/uL (1.70-6.50) Absolute Lymphs (auto) 0.53 L 10^3/uL (1.00-3.00) Absolute Monos (auto) 0.82 H 10^3/uL (0.30-0.80) Absolute Eos (auto) 0.06 10^3/uL (0.03-0.40) Absolute Basos (auto) 0.01 L 10^3/uL (0.02-0.10) Absolute Nucleated RBC 0.00 10^3/uL (0-0.01) Immature Gran % 0.3 % (0.0-1.1) Immature Gran # 0.02 10^3/uL (0.00-0.10) D-Dimer 7.05 H ug/mLFEU (0.00-0.50) VBG Lactic Acid 1.2 mmol/L (0.7-2.1) Sodium 130 L mEq/L (134-144) Potassium 3.2 L mEq/L (3.5-5.2) Chloride 88 L mEq/L (97-110) Carbon Dioxide 31 mEq/l (22-31) Anion Gap 11 mEq/L (8-16) BUN 7 mg/dL (7-23) Creatinine 0.9 mg/dL (0.7-1.3) Estimated GFR > 60 Glucose 110 H mg/dL (70-100) Calcium 8.5 mg/dL (8.5-10.4) Troponin I < 0.012 ng/mL (0-0.034) Medications Given: Discontinued Medications Sodium Chloride (Ns) 1,000 mls @ 0 mls/hr IV ONCE ONE PRN Reason: Wide Open Stop: 12/01/16 20:12 Last Admin: 12/01/16 21:25 Dose: 1,000 mls Ertapenem 1 gm/ Sodium (Chloride) 100 mls @ 200 mls/hr IV EDNOW ONE PRN Reason: Protocol Stop: 12/01/16 23:10 Last Admin: 12/01/16 22:52 Dose: 100 mls Departure - Departure Disposition: [facility] Inpatient Acute Clinical Impression: Cough, Hypoxemia, Pleural effusion Condition: Fair - PQRS PQRS Measurement: Not applicable Report Scribed for: Jennifer Perez Report Scribed by: Orlin Golden Date of Report: 12/01/16 Time of Report: 20:09
[2016-12-01] MEDS ORDERED: NS 1,000 ML IV ONE (20:11)
[2016-12-01 21:25] LABS: % IMMATURE GRANULYOCYTES 0.3 % (0.0-1.1); ABSOLUTE IMMATURE GRANULOCYTES 0.02 10^3/uL (0.00-0.10); ADD DIFF? NO; ADD MORPH? NO; ADD SCAN? NO; ATYPICAL LYMPHOCYTE FLAG 50 (0-99); FRAGMENT RBC FLAG 0 (0-99); HEMATOCRIT 34.1 % (40.0-51.0); HEMOGLOBIN 11.7 g/dL (13.7-17.5); LEFT SHIFT FLG 30 (0-99); LIPEMIA HEMOLYSIS FLAG 90 (0-99); MEAN CELL HEMOGLOBIN 30.4 pg (27.9-34.1); MEAN CELL HEMOGLOBIN CONCENTR. 34.3 g/dL (32.4-36.7); MEAN CELL VOLUME 88.6 fL (81.5-99.8); MEAN PLATELET VOLUME 9.2 fL (8.7-11.7); PLATELET CLUMPS FLAG 10 (0-99); PLATELET COUNT 142 10^3/uL (150-400); RED BLOOD CELL COUNT 3.85 10^6/uL (4.40-6.38); RED CELL DISTRIBUTION WIDTH 14.2 % (11.5-15.2)
[2016-12-01 21:37] LABS: ANION GAP 11 mEq/L (8-16); CALCIUM 8.5 mg/dL (8.5-10.4); CARBON DIOXIDE 31 mEq/l (22-31); CHLORIDE 88 mEq/L (97-110); CREATININE 0.9 mg/dL (0.7-1.3); GLOMERULAR FILTRATION RATE > 60; GLUCOSE 110 mg/dL (70-100); POTASSIUM 3.2 mEq/L (3.5-5.2); SODIUM 130 mEq/L (134-144)
--- NOTE | 2016-12-01 21:41 | CPEKG ---
Heart Rate: 72 RR Interval: 833 QRSD Interval: 88 QT Interval: 388 QTC Interval: 425 QRS [place]: 47 T Wave [place]: -22 EKG Severity - ABNORMAL ECG - EKG Impression: SINUS RHYTHM WITH FREQUENT PACs EKG Impression: BORDERLINE T ABNORMALITIES, DIFFUSE LEADS Electronically Signed By: Luis Alberto Reina 02-Dec-2016 09:11:45
--- NOTE | 2016-12-01 22:34 | DX ---
PA and Lateral Chest December 01, 2016 Indication: Dyspnea. Cough for one week. Umbilical hernia surgery 5 days ago. Comparison: Two-view chest dated September 01, 2015. Findings: Blunting of the left costophrenic angle is minimally worse since August 2015. Left basilar opacities have increased. The right lung is clear and the heart size is normal. No pneumothorax or p neumoperitoneum. No pulmonary edema. Impression: 1. Left pleural parenchymal scarring versus small left effusion. 2. Worsening left basilar atelectasis versus superimposed pneumonia. Comment: Case was discussed with Dr. Perez.
[2016-12-01 22:41] LABS: COLOR YELLOW; LEUKOCYTE ESTERASE,URINE NEGATIVE (NEGATIVE); NITRITE,URINE NEGATIVE (NEGATIVE); PH,URINE 5.5 (5.0-7.5)
[2016-12-01] MEDS ORDERED: ERTAPENEM 1 GM in NS 100 ML IV ONE (22:41)
--- NOTE | 2016-12-01 22:58 | CT ---
CT Chest Angiogram - December 01, 2016 Indication: Chest pain. Evaluate for pulmonary embolism. Recent umbilical hernia repair. Technique: Thinly collimated multidetector helical CT imaging was performed through the chest while 85 mL of Isovue 370 were injected intravenously without complication. The images were then transferr ed to an independent workstation where multiplanar reconstructions were performed. Dose reduction junaid hniques were utilized. Comparison: Two-view chest from earlier today. Findings: CT Chest Angiogram: No filling defect to suggest acute thrombopulmonary embolic disease. The subsegm ental branches in the left lower lobe are partially obscured by motion artifact and left basilar cons olidation. The thoracic aorta is normal caliber. No dissection. CT Chest: Patchy groundglass and central acinar nodules are scattered throughout the right middle lob e and bilateral lower lobes with more confluent consolidation in the basilar segments of the left low er lobe. A small to moderate left pleural effusion layers dependently measuring 3 cm AP. No right-jacqueline ed effusion. The heart size is normal. No pericardial effusion. No enlarged lymph node or mass. Bilateral gynecoma stia is likely secondary to chronic liver disease. Pleural layers dependently in the distal esophagus. Moderate to large volume of ascites resides in th e upper abdomen. The left lobe of the liver is hypertrophic and nodular, indicative of cirrhosis. Num erous gas bubbles are present in the peritoneal space of the upper abdomen, consistent with recent an terior abdominal surgery. Impression: 1. No evidence of thrombopulmonary embolic disease. 2. Multifocal airspace opacities scattered throughout the right middle lobe, right lower lobe and, to a greater degree, the left lower lobe. Query evolving bronchopneumonia, viral pneumonitis, or aspira tion. 3. Simple small to moderate layering left pleural effusion. 4. Moderate to large volume of ascites. Comment: Results were discussed with Dr. Jennifer Perez at 10:38 p.m. on December 01, 2016.
[2016-12-02] MEDS ORDERED: ZOLPIDEM TARTRATE 5 MG TAB PO PRN ×2 (01:24→13:03)
[2016-12-02] MEDS ORDERED: ONDANSETRON DISINTEGRATING 4 MG TAB PO PRN (01:24)
[2016-12-02] MEDS ORDERED: ACETAMINOPHEN 325 MG TAB PO PRN (01:24)
[2016-12-02] MEDS ORDERED: ONDANSETRON 4 MG/2 ML VIAL IVP PRN (01:24)
[2016-12-02] MEDS ORDERED: DIAZEPAM 2 MG TAB PO PRN ×2 (01:26→13:03)
[2016-12-02] MEDS ORDERED: morphINE SR 30 MG TAB PO SCH ×2 (01:30→09:00)
[2016-12-02] MEDS ORDERED: PROTOCOL POTASSIUM 1 DOSE MISC PRN (01:30)
[2016-12-02] MEDS ORDERED: PROTOCOL MAGNESIUM 1 DOSE IV PRN ×2 (01:30→10:00)
[2016-12-02] MEDS: oxyCODONE IR 5 MG TAB PO PRN ×3 (01:47→11:21)
[2016-12-02] MEDS: PIPERACILLIN/TAZO 4.5 GM/DEX 100 ML IV SCH ×3 (02:23→12:39)
[2016-12-02 05:49] LABS: % IMMATURE GRANULYOCYTES 0.7 % (0.0-1.1); ABSOLUTE IMMATURE GRANULOCYTES 0.03 10^3/uL (0.00-0.10); ADD DIFF? NO; ADD MORPH? NO; ADD SCAN? NO; ATYPICAL LYMPHOCYTE FLAG 0 (0-99); FRAGMENT RBC FLAG 0 (0-99); HEMATOCRIT 31.9 % (40.0-51.0); LEFT SHIFT FLG 20 (0-99); LIPEMIA HEMOLYSIS FLAG 90 (0-99); MEAN CELL HEMOGLOBIN 30.8 pg (27.9-34.1); MEAN CELL HEMOGLOBIN CONCENTR. 34.5 g/dL (32.4-36.7); MEAN CELL VOLUME 89.4 fL (81.5-99.8); MEAN PLATELET VOLUME 9.1 fL (8.7-11.7); PLATELET CLUMPS FLAG 0 (0-99); PLATELET COUNT 107 10^3/uL (150-400); RED BLOOD CELL COUNT 3.57 10^6/uL (4.40-6.38); RED CELL DISTRIBUTION WIDTH 14.2 % (11.5-15.2)
[2016-12-02 06:06] LABS: ALANINE AMINOTRANSFERASE 54 IU/L (21-72); ALBUMIN 2.8 g/dL (3.5-5.0); ALKALINE PHOSPHATASE 210 IU/L (38-126); ANION GAP 9 mEq/L (8-16); ASPARTATE AMINOTRANSFERASE 77 IU/L (17-59); CALCIUM 7.9 mg/dL (8.5-10.4); CARBON DIOXIDE 31 mEq/l (22-31); CHLORIDE 91 mEq/L (97-110); CREATININE 0.7 mg/dL (0.7-1.3); GLOMERULAR FILTRATION RATE > 60; GLUCOSE 115 mg/dL (70-100); MAGNESIUM 1.4 mg/dL (1.6-2.3); POTASSIUM 3.1 mEq/L (3.5-5.2); SODIUM 131 mEq/L (134-144); TOTAL PROTEIN 5.8 g/dL (6.3-8.2)
[2016-12-02 06:34] LABS: APTT 31.2 SEC (23.0-38.0); INR 1.4 (0.83-1.16); PROTIME(PATIENT) 17.1 SEC (12.0-15.0)
--- NOTE | 2016-12-02 08:02 | PDGENHP ---
History and Physical - Chief Complaint cough - History of Present Illness Pt is 55/M with Cirrhosis 2/2 HCV (s/p harvoni treatment), ulcerative colitis, with recent admission for repair of incarcerated inguinal hernia, discharged home on 11/29, who presented to the Urgent care complaining of new cough and hiccups. Pt states hiccups started after discharge from hospital and he also noticed a cough, especially after drinking liquids. He denied any fevers, chills , shortness of breath or chest pain, but he girlfriend felt he looked unwell so she brought him to the . On arrival to the Urgent care, patient was noted to be hypoxic on room air, but hemodynamically stable. Labs did not show leukocytosis, showed elevated d-dimer , hyponatremia. CT angio was obtained to r/o PE, PE was ruled out, but CT showed multifocal airspace opacities, yasmine on R, concerning for aspiration vs infectious pneumonia. He was started on ertapenem and transferred to [facility] for admission. History Information - Allergies/Home Medication List Allergies/Adverse Reactions: No Known Allergies Allergy (Verified 12/01/16 20:06) Home Medications: Furosemide [Lasix 40 MG (*)] 40 mg PO DAILY 03/22/15 [Last Taken 11/24/16] Oxymorphone HCl [Opana] 10 mg PO 5XD PRN 03/22/15 [Last Taken Unknown] Lactulose 20 gm PO TID PRN 11/24/16 [Last Taken Unknown] Gabapentin [Neurontin 100 MG (*)] 300 - 400 mg PO TID PRN 11/25/16 [Last Taken Unknown] Levothyroxine [Synthroid 50 mcg (*)] 50 mcg PO DAILY06 11/25/16 [Last Taken ] Spironolactone [Aldactone 25 MG (*)] 50 mg PO DAILY 11/25/16 [Last Taken ] Oxymorphone HCl [Opana ER] 30 mg PO BID 11/27/16 [Last Taken Unknown] I have personally reviewed and updated: family history, medical history, social history, surgical history - Past Medical History Additional medical history: cirrhosis. HCV, s/p harvoni treatment. Ulcerative colitis. recent admission for incarcerated inguinal hernia - Surgical History Additional surgical history: R knee. R shoulder. hernia repair - Family History Additional family history: F: CAD. M: ovarian ca - Social History Smoking Status: Never smoked Alcohol Use: None Drug Use: None Additional social history: Pt lives with girlfriend. Review of Systems ROS: 10pt was reviewed & negative except for what was stated in HPI & below Physical Exam Temp Pulse Resp BP Pulse Ox 36.9 C 61 20 97/65 L 96 12/02/16 07:53 12/02/16 07:53 12/02/16 07:53 12/02/16 07:53 12/02/16 07:53 O2 (L/minute) 2.5 Constitutional: appears nourished, not in pain, chronically ill appearing Eyes: PERRL, anicteric sclera, EOMI Ears, Nose, Mouth, Throat: moist mucous membranes, hearing normal, ears appear normal, no oral mucosal ulcers Cardiovascular: regular rate and rhythym, no murmur, rub, or gallop, pulses symmetric bilaterally, No JVD, No edema Peripheral Pulses: 2+: dorsalis-pedis (R), dorsalis-pedis (L) Respiratory: inspiratory crackles, rhonchi (on right) Gastrointestinal: distension (BS present, soft, nontender abdmonen, mildly distended) Genitourinary: no bladder fullness, no bladder tenderness Skin: warm, normal color, no rashes or abrasions, no fluctuance, other ( scattered ecchymosis), No mottled Musculoskeletal: full muscle strength, no muscle tenderness, normal joint ROM, no joint effusions Neurologic: AAOx3, sensation intact bilaterally, CN II-XII Intact, No weakness, No numbness Psychiatric: interacting appropriately, not anxious, not encephalopathic, thought process linear Lab Data & Imaging Review 12/02/16 05:19 12/02/16 05:19 WBC 4.31 10^3/uL (3.80-9.50) 12/02/16 05:19 RBC 3.57 10^6/uL (4.40-6.38) L 12/02/16 05:19 Hgb 11.0 g/dL (13.7-17.5) L 12/02/16 05:19 Hct 31.9 % (40.0-51.0) L 12/02/16 05:19 MCV 89.4 fL (81.5-99.8) 12/02/16 05:19 MCH 30.8 pg (27.9-34.1) 12/02/16 05:19 MCHC 34.5 g/dL (32.4-36.7) 12/02/16 05:19 RDW 14.2 % (11.5-15.2) 12/02/16 05:19 Plt Count 107 10^3/uL (150-400) L 12/02/16 05:19 MPV 9.1 fL (8.7-11.7) 12/02/16 05:19 Neut % (Auto) 71.7 % (39.3-74.2) 12/02/16 05:19 Lymph % (Auto) 11.6 % (15.0-45.0) L 12/02/16 05:19 [place] % (Auto) 13.0 % (4.5-13.0) 12/02/16 05:19 Eos % (Auto) 2.8 % (0.6-7.6) 12/02/16 05:19 Baso % (Auto) 0.2 % (0.3-1.7) L 12/02/16 05:19 Nucleat RBC Rel Count 0.0 % (0.0-0.2) 12/02/16 05:19 Absolute Neuts (auto) 3.09 10^3/uL (1.70-6.50) 12/02/16 05:19 Absolute Lymphs (auto) 0.50 10^3/uL (1.00-3.00) L 12/02/16 05:19 Absolute Monos (auto) 0.56 10^3/uL (0.30-0.80) 12/02/16 05:19 Absolute Eos (auto) 0.12 10^3/uL (0.03-0.40) 12/02/16 05:19 Absolute Basos (auto) 0.01 10^3/uL (0.02-0.10) L 12/02/16 05:19 Absolute Nucleated RBC 0.00 10^3/uL (0-0.01) 12/02/16 05:19 Immature Gran % 0.7 % (0.0-1.1) 12/02/16 05:19 Immature Gran # 0.03 10^3/uL (0.00-0.10) 12/02/16 05:19 PT 17.1 SEC (12.0-15.0) H 12/02/16 05:19 INR 1.40 (0.83-1.16) H 12/02/16 05:19 APTT 31.2 SEC (23.0-38.0) 12/02/16 05:19 D-Dimer 7.05 ug/mLFEU (0.00-0.50) H 12/01/16 21:15 VBG Lactic Acid 1.2 mmol/L (0.7-2.1) 12/01/16 21:15 Sodium 131 mEq/L (134-144) L 12/02/16 05:19 Potassium 3.1 mEq/L (3.5-5.2) L 12/02/16 05:19 Chloride 91 mEq/L (97-110) L 12/02/16 05:19 Carbon Dioxide 31 mEq/l (22-31) 12/02/16 05:19 Anion Gap 9 mEq/L (8-16) 12/02/16 05:19 BUN 6 mg/dL (7-23) L 12/02/16 05:19 Creatinine 0.7 mg/dL (0.7-1.3) 12/02/16 05:19 Estimated GFR > 60 12/02/16 05:19 Glucose 115 mg/dL (70-100) H 12/02/16 05:19 Calcium 7.9 mg/dL (8.5-10.4) L 12/02/16 05:19 Magnesium 1.4 mg/dL (1.6-2.3) L 12/02/16 05:19 Total Bilirubin 1.0 mg/dL (0.1-1.4) 12/02/16 05:19 AST 77 IU/L (17-59) H 12/02/16 05:19 ALT 54 IU/L (21-72) 12/02/16 05:19 Alkaline Phosphatase 210 IU/L (38-126) H 12/02/16 05:19 Troponin I < 0.012 ng/mL (0-0.034) 12/01/16 21:15 Total Protein 5.8 g/dL (6.3-8.2) L 12/02/16 05:19 Albumin 2.8 g/dL (3.5-5.0) L 12/02/16 05:19 Urine Color YELLOW 12/01/16 22:35 Urine Appearance CLEAR 12/01/16 22:35 Urine pH 5.5 (5.0-7.5) 12/01/16 22:35 Ur Specific [place] 1.010 (1.002-1.030) 12/01/16 22:35 Urine Protein NEGATIVE (NEGATIVE) 12/01/16 22:35 Urine Ketones NEGATIVE (NEGATIVE) 12/01/16 22:35 Urine Blood NEGATIVE (NEGATIVE) 12/01/16 22:35 Urine Nitrate NEGATIVE (NEGATIVE) 12/01/16 22:35 Urine Bilirubin NEGATIVE (NEGATIVE) 12/01/16 22:35 Urine Urobilinogen 0.2 EU (0.2-1.0) 12/01/16 22:35 Ur Leukocyte Esterase NEGATIVE (NEGATIVE) 12/01/16 22:35 Urine Glucose NEGATIVE (NEGATIVE) 12/01/16 22:35 Visualized and Interpreted Chest x-ray results: Yes Chest X-Ray results: other (b/l pleural effusions) Visualized and Interpreted imaging results: Yes Interpretation: CT angio chest: no pe, multifocal opacity Visualized and Interpreted EKG results: Yes EKG Interpretation: Positive for: normal sinsus rhythm Assessment & Plan Assessment: Pt is 55/M with cirrhosis, HCV, ulcerative colitis who presents to the complaining of productive cough, CT was negative for PE, but revealed multifocal opacities concerning for pneumonia. Plan: # multifocal R sided pneumonia Given recent hospitalization, concern for gram neg organisms, but pt also describing aspiration symptoms, so gram neg/anaerobic bacterial also on differential. Pt does not meet SIRS/sepsis criteria and lactic acid is negative. - obtain sputum cx - cover for above pathogens, zosyn 3.375 q6h - cough suppressants # cirrhosis Pt denies any abdominal pain, reports he is at baseline mental status. - cont home med regimen # hypokalemia, hyponatremia Will place on electrolyte protocol. Likely related to chronic lactulose use. - replete elctrolytes prn # recent abdominal hernia surgery Wound appears to be healing well, no obvious erythemia or purulence. Pt is having bowel movements. # Ulcerative colitis Stable, at baseline. Cont home regimen. # dispo: admit to inpt service for > 2 [place] stay # gen regular diet, sp/sw eval DVT ppx: lovenox Full code
[2016-12-02] MEDS ORDERED: ENOXAPARIN 40 MG/0.4 ML SYR SC SCH (09:00)
[2016-12-02] MEDS ORDERED: POLYETHYLENE GLYCOL 3350 17 GM PKT PO PRN (10:18)
[2016-12-02] MEDS ORDERED: BISACODYL 10 MG SUPP PR PRN (10:18)
[2016-12-02] MEDS ORDERED: MAGNESIUM HYDROXIDE 30 ML UDCUP PO PRN (10:18)
[2016-12-02] MEDS ORDERED: LACTULOSE 20 GM/30 ML UDCUP PO PRN ×2 (10:18→13:30)
[2016-12-02] MEDS ORDERED: NS 1,000 ML IV SCH (10:30)
[2016-12-02] MEDS ORDERED: MAGNESIUM SULF 2 GM/WATER 50 ML IV ONE (10:56)
[2016-12-02] MEDS ORDERED: POTASSIUM CL 10 MEQ TAB PO ONE (10:57)
[2016-12-02] MEDS ORDERED: OXYMORPHONE HCL 10 MG PO PRN (13:03)
[2016-12-02] MEDS ORDERED: MAGNESIUM CL 64 MG TAB.SR PO SCH (13:30)
[2016-12-02] MEDS ORDERED: SPIRONOLACTONE 100 MG TAB PO SCH (13:30)
[2016-12-02 15:40] LABS: ANION GAP 10 mEq/L (8-16); CALCIUM 8.3 mg/dL (8.5-10.4); CARBON DIOXIDE 31 mEq/l (22-31); CHLORIDE 91 mEq/L (97-110); CREATININE 0.8 mg/dL (0.7-1.3); GLOMERULAR FILTRATION RATE > 60; GLUCOSE 108 mg/dL (70-100); MAGNESIUM 2.1 mg/dL (1.6-2.3); POTASSIUM 3.5 mEq/L (3.5-5.2); SODIUM 132 mEq/L (134-144)
[2016-12-02] MEDS ORDERED: FUROSEMIDE 40 MG TAB PO SCH ×2 (16:00→21:00)
[2016-12-02] MEDS ORDERED: GABAPENTIN 300 MG CAP PO SCH (16:00)
[2016-12-02 16:25] VITALS: BP 102/73; PULSE 72; RESP 18; TEMP 98.5; O2SAT 92
--- NOTE | 2016-12-02 17:41 | GDS ---
[f rep st] DISCHARGE SUMMARY DISCHARGE DIAGNOSES: 1. Community-acquired pneumonia. 2. Hepatitis C cirrhosis with ascites. 3. Hypokalemia and hypomagnesemia. 4. Recent inguinal hernia repair. 5. Ulcerative colitis. HISTORY: The patient is a 55-year-old male with hepatitis C cirrhosis, who recently had an incarcerated inguinal hernia repaired, and was discharged home on November 29. He presented to urgent care with increasing cough, and his girlfriend noticed increased respiratory distress. Upon arrival to the emergency room, he was hypoxic on room air. D-dimer was elevated so we got a CT angiogram of the chest that was negative for PE. It did show multifocal patchy pneumonia. Influenza was negative. He was started on antibiotics, and he rapidly improved. He is back to room air at the time of discharge and anxious to go home. His electrolytes were abnormal including hypokalemia and hypomagnesemia. His CT scan does show persistent ascites. He is taking Lasix 40 mg 4 times a day, which is an unusual regimen. I advised him that he can switch it to 80 mg p.o. twice daily, which is an equivalent dose. I also recommended spironolactone, which will also help with his hypokalemia. He was also given a magnesium supplement at discharge and recommended close outpatient followup of his Chem 7 and magnesium levels in 1 week. DISCHARGE MEDICATIONS: Please see computer record for full detailed list. New medications: 1. Spironolactone 100 mg p.o. daily. 2. Lasix changed to 80 mg p.o. twice daily. 3. MagDelay 64 mg p.o. twice daily. 4. Levaquin 750 mg p.o. daily for 5 days. ADDITIONAL DISCHARGE INSTRUCTIONS: 1. Recheck Chem 7 and magnesium within 1 week. 2. Follow up with primary care. Greater than 30 minutes' time was spent arranging this discharge. Patient was seen and examined by me on the day of discharge. /[id number]/MODL MTDD
[2016-12-02] MEDS ORDERED: OXYMORPHONE HCL 30 MG PO SCH (21:00)
[2016-12-02] MEDS ORDERED: SENNOSIDES/DOCUSATE SODIUM TAB PO SCH (21:00)
[2016-12-02] MEDS ORDERED: sulfaSALAzine 500 MG TAB PO SCH (21:00)
[2016-12-03] MEDS ORDERED: LEVOTHYROXINE 50 MCG TAB PO SCH (06:00)
== END 2016-12-02 17:37 | disposition home or self-care (01) ==
LOC: CED 19:36 → CEDHOLD 22:29 → INTOOBSV 22:29 → F3E 12-02 00:16
PROVIDERS: ADMIT Internal Medicine; ATTEND Internal Medicine
DX: J18.9 Pneumonia, unspecified organism (principal); J90 Pleural effusion, not elsewhere classified; K74.69 Other cirrhosis of liver; R18.8 Other ascites; B18.2 Chronic viral hepatitis C; E87.6 Hypokalemia; E83.42 Hypomagnesemia; R09.02 Hypoxemia; E03.9 Hypothyroidism, unspecified; K51.90 Ulcerative colitis, unspecified, without complications; Z86.711 Personal history of pulmonary embolism; G89.29 Other chronic pain; Z98.890 Other specified postprocedural states
CPT/HCPCS: 71020; 71275; 92610; 93005; 96361; 96365; 99214; G0378; 80048-PO; 81003-PO; 83605-PO; 84484-PO; 85025-PO; 85378-PO; G0463-PO; J1650; J2543

== ENCOUNTER → 2017-04-13 | Outpatient (CLI) | payer OTHER ==
[~2017-04-13] MED LIST: IOPAMIDOL (ISOVUE-300) 100 ML BTL ONE
== END ==
LOC: FIMAGING 14:42
PROVIDERS: ATTEND Internal Medicine Gastroenterology
DX: K72.90 Hepatic failure, unspecified without coma (principal); K74.60 Unspecified cirrhosis of liver
CPT/HCPCS: Q9967

== ENCOUNTER 2017-05-27 20:45 | Inpatient (IN) | payer OTHER ==
--- NOTE | 2017-05-27 20:55 | EDPHY ---
H & P HPI/ROS: HPI CHIEF COMPLAINT: Abdominal pain HISTORY OF PRESENT ILLNESS: This patient 48-year-old male, significant past medical history for hepatitis C with liver cirrhosis, hospitalization November for community-acquired pneumonia, ulcerative colitis, history of incarcerated hernia umbilical, presents emergency room with over 24 hours of abdominal pain describes as right-sided periumbilical dull ache with associated nausea had brief episode vomiting this evening. No fever. No chest pain or shortness of breath. Describes his pain as dull ache right-sided rather constant. Denies fever. Denies urinary symptoms. Does tell me that he normally urinates a lot at night after he takes his diuretics. Tells me he has also been compliant with his lactulose. Past Medical History: Liver cirrhosis, hepatitis-C, community-acquired pneumonia, ulcerative colitis, incarcerated hernia Past Surgical History: Incarcerated hernia repair umbilical Social History: Denies daily use of drugs alcohol tobacco products Family History: Noncontributory ROS REVIEW OF SYSTEMS: A comprehensive 10 point review of systems is otherwise negative aside from elements mentioned in the history of present illness. Exam Constitutional frail-appearing, triage nursing summary reviewed, vital signs reviewed, awake/alert. Eyes normal conjunctivae and sclera, EOMI, PERRLA. HENT normal inspection, atraumatic, moist mucus membranes, no epistaxis, neck supple/ no meningismus, no raccoon eyes. Respiratory clear to auscultation bilaterally, normal breath sounds, no respiratory distress, no wheezing. Cardiovascular rate normal, regular rhythm, no murmur, no edema, distal pulses normal. Gastrointestinal distended abdomen, umbilical hernia scar present. Tender palpation periumbilical and right lower quadrant, positive fluid wave. Tender palpation. No peritoneal signs Genitourinary no CVA tenderness. Musculoskeletal no midline vertebral tenderness, full range of motion, no calf swelling, no tenderness of extremities, no meningismus, good pulses, neurovascularly intact. Skin pink, warm, & dry, no rash, skin atraumatic. Neurologic awake, alert and oriented x 3, AAOx3, moves all 4 extremities equally, motor intact, sensory intact, CN II-XII intact, normal cerebellar, normal vision, normal speech. Psychiatric normal mood/affect. Heme/Lymph/Immune no lymphadenopathy. Differential diagnosis includes but is not limited to and in no particular order :Bowel obstruction, appendicitis, gallbladder disease, diverticulitis, colitis, enteritis, perforated viscus, gastritis, GERD, esophagitis, urinary tract infection, pyelonephritis, kidney stones, SBP Medical Decision Making: Plan for this patient IV establishment, full monitor, IV fluid bolus 500 cc normal saline, IV fentanyl for pain control IV Zofran for nausea, check abdominal blood work, check lactic acid, CT abdomen pelvis with IV contrast Re-evaluation: 2251: Spoke with Dr. Wilfred Baker to review the patient's CT scan the CT abdomen pelvis with IV contrast does show large volume ascites. Also shows a small bowel obstruction. I will consult General surgery. Patient be transferred from [facility] Emergency room to [facility]. Of note this patient has hepatitis-C, liver cirrhosis moderate to large volume. Small-bowel obstruction. Hyponatremia. Patient need to be transferred by ambulance from here to [facility]. 2253: NG TUBE ORDERED. 2257: I spoke with General surgery Dr. Jesus. She will be glad to see and evaluate the patient once the patient transported for [facility]. I will double check to make sure this patient not to [facility] patient. Ba does previously did an operation on him a umbilical hernia repair and enterectomy. I have updated the patient is small-bowel obstruction. Need for NG tube. Need for admission the hospital he is okay with this plan. The surgeon has requested that I consult the hospitalist for admission. I will consult the hospitalist service for admission due to multiple underlying chronic medical problems including liver cirrhosis, hep C, large volume ascites , hyponatremia and complication now bowel obstruction. At this time this patient is hemodynamically stable no acute distress. Not septic not hypotensive. Stable for transfer to hospital. 2304: Patient agreeable on transfer. Ordered NG tube. Surgery been consult. 2308: Spoke with the hospitalist service Dr. Nickerson. He accepts admission. Patient will be appropriately transfer there. Source: Patient - Personal History Tetanus Vaccine Date: 2008 - Medical/Surgical History Hx Asthma: No Hx Chronic Respiratory Disease: No Hx Diabetes: No Hx Cardiac Disease: No Hx Renal Disease: No Hx Cirrhosis: Yes Hx Alcoholism: No Hx HIV/AIDS: No Hx Splenectomy or Spleen Trauma: No Other PMH: Hep C-RESOLVED 2013, insomnia, enchephalopathy, on liver transplant list, ulcerative colitis,UMB HERNIA, - Social History Smoking Status: Never smoked Constitutional: Initial Vital Signs Heart Rate 80 05/27/17 21:03 Respiratory Rate 16 05/27/17 21:03 Blood Pressure 153/104 H 05/27/17 21:03 O2 Sat (%) 95 05/27/17 21:03 O2 Delivery Mode Room Air Allergies/Adverse Reactions: No Known Allergies Allergy (Verified 05/27/17 21:01) Home Medications: Medication Instructions Recorded Oxymorphone HCl [Opana] 10 - 20 mg PO 5XD PRN 03/22/15 Lactulose 10 - 20 gm PO DAILY PRN 11/24/16 Levothyroxine [Synthroid 50 mcg 50 mcg PO DAILY06 11/25/16 (*)] Zolpidem Tartrate [Ambien 5MG (*)] 10 - 15 mg PO HS PRN #7 tab 11/29/16 sulfaSALAzine [Azulfidine 500 MG 500 mg PO BID 12/02/16 (*)] Furosemide [Lasix 40 MG (*)] 40 mg PO HS 05/28/17 Furosemide [Lasix 80 MG (*)] 80 mg PO DAILY 05/28/17 Ranitidine HCl [Zantac] 450 mg PO DAILY 05/28/17 Rifaximin [Xifaxan] 550 mg PO BID 05/28/17 Spironolactone [Aldactone] 200 mg PO DAILY 05/28/17 Oxymorphone HCl [Opana ER] 30 mg PO BID 05/29/17 Medical Decision Making - Data Points Laboratory Results: Laboratory Results 05/27/17 21:40 05/27/17 21:40 Medications Given: Discontinued Medications Benzocaine (Hurricaine Maybeury) 1 each MM EDNOW ONE Stop: 05/27/17 23:09 Last Admin: 05/27/17 23:33 Dose: 1 each Diazepam (Valium Injection) 2 mg IVP Q6HRS PRN PRN Reason: Anxiety, Unable to Take PO Stop: 11/24/17 01:47 Last Admin: 05/29/17 04:13 Dose: 2 mg Diazepam (Valium) 2 mg PO Q6HRS PRN PRN Reason: Anxiety, Able to Take PO Stop: 11/25/17 12:05 Last Admin: 05/29/17 13:50 Dose: 2 mg Enoxaparin Sodium (Lovenox) 40 mg SC DAILY CASSIE Stop: 11/24/17 08:59 Last Admin: 05/30/17 08:58 Dose: 40 mg Famotidine (Pepcid) 20 mg PO DAILY CASSIE Stop: 11/25/17 08:59 Last Admin: 05/30/17 08:57 Dose: 20 mg Fentanyl (Sublimaze) 50 mcg IVP EDNOW ONE Stop: 05/27/17 21:06 Last Admin: 05/27/17 21:48 Dose: 50 mcg Fentanyl (Sublimaze) 50 mcg IVP EDNOW ONE Stop: 05/28/17 00:12 Last Admin: 05/28/17 00:20 Dose: 50 mcg Furosemide (Lasix) 80 mg PO DAILY CASSIE Stop: 11/25/17 08:59 Last Admin: 05/30/17 08:57 Dose: 80 mg Furosemide (Lasix) 40 mg PO HS CASSIE Stop: 11/25/17 20:59 Last Admin: 05/29/17 21:55 Dose: 40 mg Gabapentin (Neurontin) 100 mg PO HS CASSIE Stop: 11/25/17 21:59 Last Admin: 05/29/17 22:20 Dose: 100 mg Hydromorphone HCl (Dilaudid) 1 mg IVP EDNOW ONE Stop: 05/27/17 22:35 Last Admin: 05/27/17 22:44 Dose: 1 mg Hydromorphone HCl (Dilaudid) 0.4 mg IVP Q2HRS PRN PRN Reason: Pain, Severe Unable to Take PO Stop: 06/07/17 00:58 Last Admin: 05/28/17 01:48 Dose: 0.4 mg Hydromorphone HCl (Dilaudid) 1 mg IVP Q2HRS PRN PRN Reason: Pain, Severe Unable to Take PO Stop: 06/07/17 00:58 Last Admin: 05/29/17 10:07 Dose: 1 mg Hydromorphone HCl (Dilaudid) 0.2 - 0.4 mg IVP Q4H PRN PRN Reason: Pain, Severe Unable to Take PO Stop: 06/07/17 01:45 Last Admin: 05/29/17 13:42 Dose: 0.4 mg Hydromorphone HCl (Dilaudid) 0.25 - 1 mg IVP Q2H PRN PRN Reason: Pain, Severe Unable to Take PO Stop: 06/08/17 12:04 Last Admin: 05/30/17 03:32 Dose: 1 mg Sodium Chloride (Ns) 500 mls @ 0 mls/hr IV ONCE ONE PRN Reason: Wide Open Stop: 05/27/17 21:07 Last Admin: 05/27/17 21:45 Dose: 500 mls Sodium Chloride (Ns) 500 mls @ 0 mls/hr IV ONCE ONE PRN Reason: Wide Open Stop: 05/27/17 22:01 Last Admin: 05/27/17 22:35 Dose: 500 mls Sodium Chloride (Ns) 1,000 mls @ 125 mls/hr IV CONT CASSIE Stop: 11/24/17 01:44 Last Admin: 05/28/17 02:40 Dose: 1,000 mls Dextrose/Sodium Chloride (D5w Ns) 1,000 mls @ 75 mls/hr IV CONT CASSIE Stop: 11/24/17 15:14 Last Admin: 05/29/17 01:20 Dose: 1,000 mls Pantoprazole Sodium 40 mg/ (Sodium Chloride) 100 mls @ 200 mls/hr IV DAILY CASSIE Stop: 11/24/17 17:59 Last Admin: 05/29/17 09:59 Dose: 100 mls Lactulose (Cephulac) 20 gm PO TID CASSIE Stop: 11/25/17 08:59 Last Admin: 05/30/17 09:50 Dose: 20 gm Levothyroxine Sodium (Synthroid) 50 mcg PO DAILY06 CASSIE Stop: 11/26/17 05:59 Last Admin: 05/30/17 05:57 Dose: 50 mcg Lidocaine (Uroject Lidocaine 2% Jelly) 20 ml UR EDNOW ONE Stop: 05/27/17 23:09 Last Admin: 05/27/17 23:33 Dose: 20 ml Miscellaneous Medication (Oxymorphone Hcl [Opana]) 10 mg PO 5XD PRN PRN Reason: Pain, Severe Stop: 11/25/17 12:12 Last Admin: 05/30/17 05:57 Dose: 10 mg Miscellaneous Medication (Oxymorphone Hcl [Opana Er]) 0 mg PO BID CASSIE Stop: 11/25/17 21:59 Last Admin: 05/29/17 22:21 Dose: 30 mg Miscellaneous Medication (Oxymorphone Hcl [Opana Er]) 30 mg PO BID CASSIE Stop: 11/25/17 21:59 Last Admin: 05/30/17 08:56 Dose: 30 mg Ondansetron HCl (Zofran) 4 mg IVP EDNOW ONE Stop: 05/27/17 21:06 Last Admin: 05/27/17 21:48 Dose: 4 mg Ondansetron HCl (Zofran) 4 mg IVP Q4HRS PRN PRN Reason: Nausea/Vomiting, Can't Take PO Stop: 11/24/17 01:42 Last Admin: 05/28/17 18:51 Dose: 4 mg Promethazine HCl (Phenergan) 12.5 mg IVP Q6HRS PRN PRN Reason: Nausea/Vomiting, Can't Take PO Stop: 11/24/17 00:58 Last Admin: 05/28/17 22:02 Dose: 12.5 mg Rifaximin (Xifaxan) 550 mg PO BID CASSIE PRN Reason: Protocol Stop: 06/28/17 08:59 Last Admin: 05/30/17 08:57 Dose: 550 mg Spironolactone (Aldactone) 200 mg PO DAILY CASSIE Stop: 11/25/17 08:59 Last Admin: 05/30/17 08:58 Dose: 200 mg Sulfasalazine (Azulfidine) 500 mg PO BID CASSIE Stop: 06/28/17 11:59 Last Admin: 05/30/17 08:57 Dose: 500 mg Throat Lozenges (Cepacol Lozenge) 1 ea PO Q1H PRN PRN Reason: Sore Throat Stop: 11/24/17 08:03 Last Admin: 05/28/17 17:13 Dose: 1 ea Zolpidem Tartrate (Ambien) 10 mg PO HS PRN PRN Reason: Sleep/Insomnia Stop: 11/25/17 12:02 Last Admin: 05/29/17 22:20 Dose: 10 mg Departure - Departure Disposition: [facility] Inpatient Acute Clinical Impression: Hyponatremia, Generalized weakness, SBO (small bowel obstruction) Abdominal pain Qualifiers: Abdominal location: generalized Qualified Code(s): R10.84 - Generalized abdominal pain Condition: Good
[2017-05-27] MEDS ORDERED: fentaNYL 100 MCG/2 ML INJ IVP ONE (21:05)
[2017-05-27] MEDS ORDERED: ONDANSETRON 4 MG/2 ML VIAL IVP ONE (21:05)
[2017-05-27] MEDS ORDERED: NS 500 ML IV ONE ×2 (21:06→22:00)
[2017-05-27] MEDS ORDERED: IOPAMIDOL (ISOVUE-300) 100 ML BTL ONE (21:30)
[2017-05-27 21:47] LABS: % IMMATURE GRANULYOCYTES 0.4 % (0.0-1.1); ABSOLUTE IMMATURE GRANULOCYTES 0.03 10^3/uL (0.00-0.10); ADD DIFF? NO; ADD MORPH? NO; ADD SCAN? NO; ATYPICAL LYMPHOCYTE FLAG 0 (0-99); FRAGMENT RBC FLAG 0 (0-99); HEMATOCRIT 43.8 % (40.0-51.0); HEMOGLOBIN 15.3 g/dL (13.7-17.5); LEFT SHIFT FLG 0 (0-99); LIPEMIA HEMOLYSIS FLAG 90 (0-99); MEAN CELL HEMOGLOBIN 30.8 pg (27.9-34.1); MEAN CELL HEMOGLOBIN CONCENTR. 34.9 g/dL (32.4-36.7); MEAN CELL VOLUME 88.3 fL (81.5-99.8); MEAN PLATELET VOLUME 9.6 fL (8.7-11.7); PLATELET CLUMPS FLAG 0 (0-99); PLATELET COUNT 144 10^3/uL (150-400); RED BLOOD CELL COUNT 4.96 10^6/uL (4.40-6.38); RED CELL DISTRIBUTION WIDTH 15.1 % (11.5-15.2)
[2017-05-27 22:00] LABS: INR 1.17 (0.83-1.16); PROTIME(PATIENT) 14.6 SEC (12.0-15.0)
[2017-05-27 22:01] LABS: APTT 29.1 SEC (23.0-38.0)
[2017-05-27 22:02] LABS: ALANINE AMINOTRANSFERASE 29 IU/L (21-72); ALBUMIN 4.3 g/dL (3.5-5.0); ALKALINE PHOSPHATASE 136 IU/L (38-126); ANION GAP 15 mEq/L (8-16); ASPARTATE AMINOTRANSFERASE 43 IU/L (17-59); BILIRUBIN,TOTAL 1.2 mg/dL (0.1-1.4); BILIRUBIN-CONJUGATED 0.6 mg/dL (0.0-0.5); BILIRUBIN-UNCONJUGATED 0.6 mg/dL (0.0-1.1); CALCIUM 10.5 mg/dL (8.5-10.4); CARBON DIOXIDE 27 mEq/l (22-31); CHLORIDE 87 mEq/L (97-110); CREATININE 0.9 mg/dL (0.7-1.3); GLOMERULAR FILTRATION RATE > 60; GLUCOSE 173 mg/dL (70-100); POTASSIUM 4.5 mEq/L (3.5-5.2); SODIUM 129 mEq/L (134-144); TOTAL PROTEIN 8.6 g/dL (6.3-8.2)
[2017-05-27] MEDS ORDERED: HYDROmorphONE/DILAUDID 1 MG/ML SYR IVP ONE (22:34)
[2017-05-27] MEDS ORDERED: LIDOCAINE 2% JELLY 20 ML (UROJECT) ONE (23:02)
[2017-05-27] MEDS ORDERED: LIDOCAINE 2% JELLY 20 ML (UROJECT) UR ONE (23:08)
[2017-05-27] MEDS ORDERED: BENZOCAINE UNIT DOSE SPRAY HURRICAINE MM ONE (23:08)
[2017-05-28] MEDS ORDERED: fentaNYL 100 MCG/2 ML INJ IVP ONE (00:11)
[2017-05-28] MEDS ORDERED: HYDROmorphONE/DILAUDID 1 MG/ML SYR IVP PRN (00:59)
[2017-05-28] MEDS ORDERED: ONDANSETRON DISINTEGRATING 4 MG TAB PO PRN (01:43)
[2017-05-28] MEDS ORDERED: NS 1,000 ML IV SCH (01:45)
[2017-05-28] MEDS: PROMETHAZINE HCL 25 MG/ML INJ IVP PRN ×4 (01:47→22:02)
--- NOTE | 2017-05-28 02:26 | GHP ---
[f rep st] HISTORY AND PHYSICAL DATE OF ADMISSION: 05/28/2017 HISTORY OF PRESENT ILLNESS: The patient is a 56-year-old gentleman with history of hepatitis C cirr hannah, treated hepatitis C, and incarcerated umbilical hernia repair with enterectomy performed in l ate October 2016 who presents with about a day and a half history of abdominal pain. His last savanna l movement was last night. He takes lactulose on a regular basis. When he does not take it, he get s forgetful, but not necessarily encephalopathic. He has had some nausea and vomiting. He really j ust had 1 episode of vomiting this evening. He has not had fevers, no had chest pain or shortness o f breath. He describes his pain as a dull ache on the right side. No urinary symptoms. REVIEW OF SYSTEMS: Complete 10-point review of systems was conducted and negative except as noted i n the HPI. PAST MEDICAL HISTORY: 1. Cirrhosis. 2. Chronic narcotic dependence for pain. 3. Hepatitis C. 4. History of community-acquired. 5. Ulcerative colitis. 6. Incarcerated hernia. SOCIAL HISTORY: No tobacco or alcohol. FAMILY HISTORY: Reviewed and unremarkable. ALLERGIES: No known drug allergies. HOME MEDICATIONS: Diazepam 2 q.6, furosemide, gabapentin, lactulose, levothyroxine, mag chloride, o xymorphone 10 p.o. 5 times a day, oxymorphone long-acting 30 b.i.d., spironolactone, sulfasalazine, Ambien. PHYSICAL EXAMINATION: VITAL SIGNS: Temp 36.9, blood pressure 129/94, pulse 60, breathing 16 times a minute, 97% on room air. GENERAL: No acute distress. NG tube in place. HEENT: Sclerae anicter ic. Oropharynx clear. Mucous membranes moist. NECK: Supple without lymphadenopathy or JVD. LUNG S: Clear to auscultation anterolaterally. HEART: S1, S2. Not tachycardic. ABDOMEN: Soft. It i s mildly distended. Bowel sounds are present. Modestly hypoactive, but actually sound okay. LOWER EXTREMITIES: Trace edema bilaterally. Calves nontender. SKIN: Without rash. NEUROLOGIC: Nonfoc al. LABORATORY DATA: White count 8.3, hematocrit 43.8, platelets are 144,000. INR is 1.17. Venous lac dunlap was elevated at 2.3, now 2.0. Sodium 129, potassium 4.5, chloride 87, bicarb 27, BUN 16, creat inine 0.9, calcium slightly high at 10.5. LFTs are pretty normal. Alkaline phosphatase is 136. Am monia is 36. Abdominal CT shows small bowel obstruction in the right central abdomen. It is near some anastomoti c clips. There is also moderate to large ascites. I have reviewed/interpreted the images myself. I discussed the case Dr. Eliecer Mccord. ASSESSMENT/PLAN: A 56-year-old gentleman with hepatitis C cirrhosis, recent abdominal resection, he re with small bowel obstruction. 1. Small bowel obstruction. This appears to be in the setting of surgical clips. The patient has no peritoneal signs and present bowel sounds. We will manage him conservatively with NG tube, antie metics, pain medications. Dr. Jesus has been consulted, will see him in the morning. 2. Hepatitis C cirrhosis. Given his n.p.o. and SBO, we are going to need to hold his diuretics and lactulose. I have discussed this with the patient. We will give gentle IV fluids at 125 an hour. 3. Continuous narcotic dependence. I have written for 1 q.2 of IV Dilaudid. I do not think take p ills. 4. Benzodiazepine dependence. I have written for 2 q.6 p.r.n. IV Valium. 5. Prophylaxis. Pharmacologic prophylaxis indicated, 40 units subcu q. day. 6. Cirrhosis. The patient does not appear to have decompensated cirrhosis. I do not think at this point he has a paracentesis. 7. Disposition: Inpatient status. /[id number]/MODL
[2017-05-28] MEDS: HYDROmorphONE/DILAUDID 1 MG/ML SYR IVP PRN ×8 (04:58→22:01)
[2017-05-28] MEDS: DIAZEPAM 10 MG/2 ML SYR IVP PRN ×3 (05:09→22:01)
[2017-05-28 05:18] LABS: % IMMATURE GRANULYOCYTES 0.6 % (0.0-1.1); ABSOLUTE IMMATURE GRANULOCYTES 0.04 10^3/uL (0.00-0.10); ADD DIFF? NO; ADD MORPH? NO; ADD SCAN? NO; ATYPICAL LYMPHOCYTE FLAG 0 (0-99); FRAGMENT RBC FLAG 0 (0-99); HEMATOCRIT 45.2 % (40.0-51.0); HEMOGLOBIN 15.3 g/dL (13.7-17.5); LEFT SHIFT FLG 10 (0-99); LIPEMIA HEMOLYSIS FLAG 90 (0-99); MEAN CELL HEMOGLOBIN 30.6 pg (27.9-34.1); MEAN CELL HEMOGLOBIN CONCENTR. 33.8 g/dL (32.4-36.7); MEAN CELL VOLUME 90.4 fL (81.5-99.8); MEAN PLATELET VOLUME 9.4 fL (8.7-11.7); PLATELET CLUMPS FLAG 10 (0-99); PLATELET COUNT 108 10^3/uL (150-400); RED CELL DISTRIBUTION WIDTH 15.2 % (11.5-15.2)
[2017-05-28 05:31] LABS: ANION GAP 12 mEq/L (8-16); CALCIUM 10.8 mg/dL (8.5-10.4); CARBON DIOXIDE 26 mEq/l (22-31); CHLORIDE 92 mEq/L (97-110); GLOMERULAR FILTRATION RATE > 60; GLUCOSE 121 mg/dL (70-100); POTASSIUM 5.1 mEq/L (3.5-5.2); SODIUM 130 mEq/L (134-144)
[2017-05-28 05:45] LABS: COLOR YELLOW; LEUKOCYTE ESTERASE,URINE NEGATIVE (NEGATIVE); NITRITE,URINE NEGATIVE (NEGATIVE)
[2017-05-28] MEDS ORDERED: CEPACOL LOZENGE PO PRN (08:04)
--- NOTE | 2017-05-28 08:08 | PDCONSULT ---
Bee Tender Note: Surgery Consult CC: abd pain HPI: 56 y/o with 3 day hx abd pain starting after eating a "half bag" of cherries. 6 months ago he underwent emergent repair of a strangulated umbilical hernia by Dr. Ruiz with enterectomy. He presented to the [facility] and was admitted to the medical service last night for NGT decompression and surgical consult was requested. He reports very little emesis, pain is constant. PMH: cirrhosis/HepC NKDA meds:Dilaudid, Valium, Lovenox, Zofran, Cepacol SH: here with SO (Peg) FH: NC ROS: no melena or hematochezia, no hematemesis PE: chronically ill appearing male in mild distress no icterus/no JVD lungs clear with diminished breath sounds at bases abd: soft, distended +BS, diffuse tenderness without guarding/healed transverse incision, no recurrent hernia + ascites CT reviewed: small bowel dilatation with large amount of retained semi-solid matter (phytobezor) ascites/no free air Imp: 1. SBO with phytobezor 2. cirrhosis with ascites (Child's C) 3. s/p small bowel resection Rec: SBFT/non-operative therapy if possible as patient is at high risk for complications due to his hepatic insufficiency/portal hypertension/ascites Davie Yanez MD, FACS
[2017-05-28] MEDS: ENOXAPARIN 40 MG/0.4 ML SYR SC SCH (09:17)
[2017-05-28] MEDS: ONDANSETRON 4 MG/2 ML VIAL IVP PRN ×2 (10:30→18:51)
--- NOTE | 2017-05-28 11:15 | HOSPPROG ---
Hospitalist Progress Note Assessment/Plan: SBO - transition point in right abdomen near anastomotic clips. NG tube in place, he is not tolerating this well and continues to ask for it to be removed. SBFT this am, but pt vomited contrast. Hoping for continued conservative management given his surgical risks in setting of cirrhosis with portal htn and ascites. -Cont NG tube -Appreciate surgery assistance -SBFT this am, f/u imaging pending. Cirrhosis with ascites secondary to hep C - mod to lg volume ascites on CT though abdomen is not tense. Does not need paracentesis at this time. Appears volume depleted. -check AFP, he looks cachectic -cont to hold diuretics -IVF's -discussed case with GI, will formally consult if he decompensates Chronic continuous opioid dependence - Cont IV dilaudid, resume home regimen when taking po Chronic bzd dependence - cont IV valium, resume home meds when taking po H/O UC - in remission, sulfasalazine on hold, continue when taking PO. Full code Dispo - cont inpt DVT PPLX - Lovenox Subjective: Pt is very uncomfortable. Nausea and pain. Wants NG tube out. No fevers. Objective: Vital Signs Temp Pulse Resp BP Pulse Ox 36.8 C 71 16 122/83 H 91 L 05/28/17 08:09 05/28/17 08:09 05/28/17 08:09 05/28/17 08:09 05/28/17 08:09 Laboratory Results 05/28/17 04:50 05/28/17 04:50 05/27/17 05/28/17 05/29/17 05:59 05:59 05:59 Intake Total 1400 Output Total 550 Balance 850 PT 14.6 SEC (12.0-15.0) 05/27/17 21:40 INR 1.17 (0.83-1.16) H 05/27/17 21:40 - Physical Exam Constitutional: no apparent distress Eyes: PERRL Ears, Nose, Mouth, Throat: moist mucous membranes Cardiovascular: regular rate and rhythym Respiratory: no respiratory distress, clear to auscultation Gastrointestinal: other (soft, mild distention, +diffuse TTP, no r/r/g, +BS) Skin: warm Musculoskeletal: generalized weakness Neurologic: AAOx3 Psychiatric: interacting appropriately ICD10 Worksheet Patient Problems: Problems Problem Status Onset Abdominal pain Acute Generalized weakness Acute Hyponatremia Acute SBO (small bowel obstruction) Acute Cough Acute Hepatitis C virus Acute Hypoxemia Acute Incarcerated hernia Acute Pleural effusion Acute
[2017-05-28] MEDS: D5W NS 1,000 ML IV SCH (15:35)
[2017-05-28] MEDS: PANTOPRAZOLE SODIUM 40 MG in NS 100 ML IV SCH (18:51)
--- NOTE | 2017-05-28 19:06 | SOAPPROG ---
Downtime Inpatient Late Entry SOAP Note: SBFT shows no progression beyond the jejunum. His abd remains soft/bowel sounds are now hypoactive His main complaint is his NGT which is not putting out much He has had a bowel movement today Imp: high grade SBO with no clinical signs of peritonitis ascites/hepatic insufficiency Rec: I recommended continuing NG suction and observation. I explained to him the significant risk he will be exposed to if surgery is necessary. Davie Yanez MD, FACS
[2017-05-29] MEDS: D5W NS 1,000 ML IV SCH (01:20)
[2017-05-29] MEDS: HYDROmorphONE/DILAUDID 1 MG/ML SYR IVP PRN ×7 (01:29→21:50)
[2017-05-29] MEDS: DIAZEPAM 10 MG/2 ML SYR IVP PRN (04:13)
[2017-05-29 04:34] LABS: HEMATOCRIT 42.3 % (40.0-51.0); HEMOGLOBIN 14.3 g/dL (13.7-17.5); MEAN CELL HEMOGLOBIN 30.8 pg (27.9-34.1); MEAN CELL HEMOGLOBIN CONCENTR. 33.8 g/dL (32.4-36.7); MEAN CELL VOLUME 91.2 fL (81.5-99.8); RED BLOOD CELL COUNT 4.64 10^6/uL (4.40-6.38); RED CELL DISTRIBUTION WIDTH 15.4 % (11.5-15.2)
[2017-05-29 04:47] LABS: ALANINE AMINOTRANSFERASE 35 IU/L (21-72); ALBUMIN 3.8 g/dL (3.5-5.0); ALKALINE PHOSPHATASE 104 IU/L (38-126); ANION GAP 11 mEq/L (8-16); ASPARTATE AMINOTRANSFERASE 32 IU/L (17-59); BILIRUBIN,TOTAL 1.4 mg/dL (0.1-1.4); CALCIUM 9.6 mg/dL (8.5-10.4); CARBON DIOXIDE 26 mEq/l (22-31); CHLORIDE 101 mEq/L (97-110); GLOMERULAR FILTRATION RATE > 60; GLUCOSE 140 mg/dL (70-100); POTASSIUM 4.2 mEq/L (3.5-5.2); SODIUM 138 mEq/L (134-144); TOTAL PROTEIN 7.1 g/dL (6.3-8.2)
--- NOTE | 2017-05-29 06:46 | PDCONSULT ---
Electric Meter Tester Helper Note: Jose is feeling better. KUB this morning shows all of the residual gastrograffin to be in his colon. This would be consistant with a partial obstruction and a proximal phytobezor. I would recommend a slow diet advance starting with clear liquids today and progressing to a low residue/low fiber diet. His oral meds were restarted. Exam: no distess/ Abd: soft/non-tender S MD Beau, FACS
[2017-05-29] MEDS ORDERED: RANITIDINE PO SCH (09:00)
[2017-05-29] MEDS: LACTULOSE 20 GM/30 ML UDCUP PO SCH ×3 (09:59→21:54)
[2017-05-29] MEDS: SPIRONOLACTONE 50 MG TAB PO SCH (09:59)
[2017-05-29] MEDS: ENOXAPARIN 40 MG/0.4 ML SYR SC SCH (09:59)
[2017-05-29] MEDS: FAMOTIDINE 20 MG TAB PO SCH (09:59)
[2017-05-29] MEDS: PANTOPRAZOLE SODIUM 40 MG in NS 100 ML IV SCH (09:59)
[2017-05-29] MEDS: RIFAXIMIN 550 MG TAB PO SCH ×2 (09:59→21:50)
[2017-05-29] MEDS: FUROSEMIDE 40 MG TAB PO SCH (10:00)
--- NOTE | 2017-05-29 12:01 | HOSPPROG ---
Hospitalist Progress Note Assessment/Plan: SBO - improving. Repeat KUB this am shows gastrograffin in the colon. NG tube out. Pt had a BM. Tolerating clears. -advance diet slowly -appreciate surgery assistance Cirrhosis with ascites secondary to hep C - mod to lg volume ascites on CT though abdomen is not tense. Does not need paracentesis at this time. Volume status improved today. AFP normal. -resume diuretics, lactulose -d/c ivf's Chronic continuous opioid dependence - Resume home Opana Chronic bzd dependence - Resume oral diazepam prn. H/O UC - in remission, resume sulfasalazine Full code Dispo - cont inpt, possibly home tomorrow if continues to do well. DVT PPLX - Lovenox Subjective: Pt feels better. NG tube out. Had large "squirty" BM this am. Pain improved. No more fevers. Tolerating clears. Objective: Vital Signs Temp Pulse Resp BP Pulse Ox 36.8 C 62 16 128/73 H 94 05/29/17 07:37 05/29/17 07:37 05/29/17 07:37 05/29/17 07:37 05/29/17 07:37 Laboratory Results 05/29/17 03:55 05/29/17 03:55 05/28/17 05/29/17 05/30/17 05:59 05:59 05:59 Intake Total 1400 935 Output Total 550 2550 600 Balance 850 -1615 -600 PT 14.6 SEC (12.0-15.0) 05/27/17 21:40 INR 1.17 (0.83-1.16) H 05/27/17 21:40 - Physical Exam Constitutional: no apparent distress Eyes: PERRL Ears, Nose, Mouth, Throat: moist mucous membranes Cardiovascular: regular rate and rhythym Respiratory: no respiratory distress, clear to auscultation Gastrointestinal: normoactive bowel sounds, other (soft, mild distention, non- tender, no r/r/g) Skin: warm Musculoskeletal: full muscle strength Neurologic: AAOx3 Psychiatric: interacting appropriately ICD10 Worksheet Patient Problems: Problems Problem Status Onset Abdominal pain Acute Generalized weakness Acute Hyponatremia Acute SBO (small bowel obstruction) Acute Cough Acute Hepatitis C virus Acute Hypoxemia Acute Incarcerated hernia Acute Pleural effusion Acute
[2017-05-29] MEDS ORDERED: OXYMORPHONE HCL 10 MG PO PRN ×2 (12:02→12:13)
[2017-05-29] MEDS ORDERED: ZOLPIDEM TARTRATE 5 MG TAB PO PRN (12:03)
[2017-05-29] MEDS ORDERED: HYDROmorphONE/DILAUDID 1 MG/ML SYR IVP PRN (12:05)
[2017-05-29] MEDS ORDERED: DIAZEPAM 2 MG TAB PO PRN (12:06)
[2017-05-29] MEDS: sulfaSALAzine 500 MG TAB PO SCH ×2 (16:14→21:50)
[2017-05-29] MEDS ORDERED: FUROSEMIDE 40 MG TAB PO SCH (21:00)
[2017-05-29] MEDS ORDERED: GABAPENTIN 100 MG CAP PO SCH (22:00)
[2017-05-29] MEDS ORDERED: OXYMORPHONE HCL 30 MG PO SCH (22:00)
[2017-05-30] MEDS: HYDROmorphONE/DILAUDID 1 MG/ML SYR IVP PRN (03:32)
[2017-05-30 03:33] VITALS: RESP 16
[2017-05-30] MEDS ORDERED: LEVOTHYROXINE 50 MCG TAB PO SCH (06:00)
[2017-05-30 07:27] VITALS: BP 105/72; PULSE 59; TEMP 97.3; O2SAT 94
--- NOTE | 2017-05-30 08:11 | PDCONSULT ---
Garbage Collector Driver Note: Jose is feeling better, had two BMs yesterday, no nausea or vomiting Abd: soft/+BS, non-tender Imp: partial SBO clinically resolving Rec: continue low residue diet stable for discharge from surgical viewpoint S MD Beau,FACS
[2017-05-30] MEDS: RIFAXIMIN 550 MG TAB PO SCH (08:57)
[2017-05-30] MEDS: FUROSEMIDE 40 MG TAB PO SCH (08:57)
[2017-05-30] MEDS: sulfaSALAzine 500 MG TAB PO SCH (08:57)
[2017-05-30] MEDS: FAMOTIDINE 20 MG TAB PO SCH (08:57)
[2017-05-30] MEDS: ENOXAPARIN 40 MG/0.4 ML SYR SC SCH (08:58)
[2017-05-30] MEDS: SPIRONOLACTONE 50 MG TAB PO SCH (08:58)
[2017-05-30] MEDS ORDERED: OXYMORPHONE HCL 30 MG PO SCH (09:00)
[2017-05-30] MEDS: LACTULOSE 20 GM/30 ML UDCUP PO SCH (09:50)
--- NOTE | 2017-05-31 00:27 | GDS ---
[f rep st] DISCHARGE SUMMARY DISCHARGE DIAGNOSES: 1. Small bowel obstruction, resolved. 2. Cirrhosis with ascites. 3. Hepatitis C. 4. Chronic continuous opioid dependence. 5. Chronic benzodiazepine dependence. 6. History of ulcerative colitis, in remission. AIR DRIER: Dr. Eliecer Yanez, general surgery. HISTORY: For details, please see dictated History and Physical dated May 28, 2017. In brief, the patient is a 56-year-old male, with a history of hepatitis C, cirrhosis, and ascites, who presented to the emergency department with abdominal pain, nausea and vomiting. He was found to have a small-bowel obstruction and was admitted to the hospital for further management. HOSPITAL COURSE: Patient was admitted to medical-surgical unit. His abdominal CT showed small savanna l obstruction in the right central abdomen, near some anastomotic clips. NG tube was placed. He wa s treated with antiemetic and pain medications. General Surgery was consulted and he was managed co nservatively. He underwent small bowel follow-through, and the following day the contrast passed in to the colon and he had a large bowel movement with improvement in his symptoms. On arrival, he britton eared volume-depleted and required IV fluids. His diuretics were held. These were resumed once his clinical condition improved and he was able to take p.o. He was also continued on his lactulose as he was developing very mild symptoms of hepatic encephalopathy as we had to hold this for a couple of days in the setting of small-bowel obstruction. He had no evidence of decompensated cirrhosis an d did not require paracentesis. Patient was able to tolerate a full diet prior to discharge and he is instructed to continue a low-f iber diet at home. DISCHARGE DISPOSITION: Patient was discharged home in stable condition. FOLLOWUP: 1. BOBY Mathur, primary care. 2. Gastroenterology. DISCHARGE MEDICATIONS: The patient will continue all outpatient medications, as previously prescrib ed. There are no changes in his medication regimen and no new medications on discharge. /[id number]/MODL
== END 2017-05-30 11:48 | disposition home or self-care (01) | DRG 389 ==
LOC: CED 20:45 → CEDHOLD 23:14 → F1N 05-28 00:47
PROVIDERS: ADMIT Internal Medicine; ATTEND Internal Medicine
DX: K56.60 Unspecified intestinal obstruction (principal); F15.20 Other stimulant dependence, uncomplicated; B18.2 Chronic viral hepatitis C; K74.60 Unspecified cirrhosis of liver; F17.200 Nicotine dependence, unspecified, uncomplicated
CPT/HCPCS: 74177-PO; 80048-PO; 80076-PO; 83605-PO; 83690-PO; 85025-PO; 85610-PO; 85730-PO; J1170; J1650; J2405; J2550; J3010; Q9967

== ENCOUNTER → 2017-07-01 | Outpatient (CLI) | payer OTHER ==
[~2017-07-01] MED LIST changes: +GADOBUTROL 10 ML VIAL IVP ONE; +GLUCAGON,HUMAN RECOMBINANT 0.3 MG in SYRINGE 0.3 ML IVP ONE; -IOPAMIDOL (ISOVUE-300) 100 ML BTL ONE
== END ==
LOC: FIMAGING 13:44
PROVIDERS: ATTEND Physician Assistant
DX: K63.89 Other specified diseases of intestine (principal); K74.60 Unspecified cirrhosis of liver; R18.8 Other ascites
CPT/HCPCS: A9585; J1610

== ENCOUNTER → 2017-07-05 | Outpatient (CLI) | payer OTHER | PROVIDERS: ATTEND Physician Assistant | DX: R13.10 Dysphagia, unspecified (principal) | CPT/HCPCS: 92611-GN ==

== ENCOUNTER → 2017-10-28 | Outpatient (CLI) | payer OTHER ==
[~2017-10-28] MED LIST changes: +ALBUMIN 25% 50 ML SOLN IV ONE; -GADOBUTROL 10 ML VIAL IVP ONE; -GLUCAGON,HUMAN RECOMBINANT 0.3 MG in SYRINGE 0.3 ML IVP ONE; +LIDOCAINE 1% 300 MG/30 ML SDV ONE
== END ==
LOC: FIMAGING 11:44
PROVIDERS: ATTEND Physician Assistant
PROC: 0W9G3ZZ Drainage of Peritoneal Cavity, Percutaneous Approach (ICD-10-PCS; principal; 2017-10-28)
DX: R18.8 Other ascites (principal); K72.10 Chronic hepatic failure without coma
CPT/HCPCS: P9047

== ENCOUNTER 2017-11-24 13:09 | Day surgery (SDC) | payer OTHER ==
[2017-11-24] MEDS ORDERED: DOBUTamine/DEXTROSE 250 ML IV ONE (14:00)
[2017-11-24] MEDS ORDERED: ATROPINE SULFATE 1 MG/10 ML SYR ONE (14:03)
--- NOTE | 2017-11-24 14:20 | PDGENHP ---
History & Physical Chief Complaint: pre op liver transplant History of Present Illness: 56 yo no prior CV history here for stress echo as part of liver transplant workup. Relevant Physical Exam: cachectic. regular rate and rhythm. lungs clear. Cardiorespiratory Assessment: Stress echo today.
--- NOTE | 2017-11-24 15:51 | ECHO ---
[email or web address] [address] [address] Main: [phone] Fax: Transthoracic Echocardiogram Name: LIDIA TERRAZAS MR#: [id number] Study Date: 11/24/2017 Study Time: 01:33 PM Date of : 1960 Age: 56 year(s) Height: ( ) Weight: ( ) BSA: Gender: Male Examination: DSE Indication: Dobutatmine stress echo and bubble study Image Quality: Adequate Contrast: I.V. dose of agitated saline Requested by: Gabriella Boogie BP: / Heart Rate: Rhythm: Indication: Dobutatmine stress echo and bubble study Procedure Staff Poured Pipe Maker: Radha Merritt Reading Physician: Amilcar Antonio Requesting Provider: Conclusions: Baseline echocardiogram showed normal LV systolic function without regional wall motion abnormalities. Low-dose dobutamine showed recruitment of all cardiac segments. At peak stress with a heart rate of 137 at 20 micrograms/kilos per minute of dobutamine no regional wall motion abnormalities were identified. Conclusion: Normal dobutamine stress echo without evidence of ischemia. Measurements: Chambers Valvular Assessment AV/MV Valvular Assessment TV/PV Normal Normal Normal Name Value Range Name Value Range Name Value Range Continued Measurements: Findings: Left Atrium: An agitated saline study was performed and was negative for intracardiac shunting. (No Signature Object) Patient: LIDIA TERRAZAS Study Date: 11/24/2017 Page 1 of 1 01:33 PM [id number]
--- NOTE | 2017-11-25 03:06 | CPIP ---
[f rep st] INVASIVE CARDIAC PROCEDURE DATE OF PROCEDURE: 11/24/2017 PROCEDURE: Dobutamine stress echocardiogram. INDICATIONS: Pre liver transplant. Assessment for underlying ischemic coronary artery disease. DESCRIPTION OF PROCEDURE: At baseline, patient's EKG revealed sinus rhythm at 64, and there were no acute ST-T changes concerning for ischemia at rest. Baseline echocardiogram showed normal LV functio n without regional wall motion abnormalities. The patient was administered 2.5 mcg/kg per minute of dobutamine. Repeat EKG showed no significant ST-T changes. Dobutamine showed clear recruitment of a ll cardiac segments. The patient was administered dobutamine at an escalating dose, with serial siomara toring of the EKG and echo. He tolerated 5 mcg, 10 mcg, and ultimately 20 mcg/kg per minute. At pea k stress, there was 0.[address] depression in the lateral leads. Repeat echocardiography s howed clear recruitment of all cardiac segments without regional wall motion abnormalities. The tristin ent tolerated the procedure well. There was no significant chest pain. At the end of the study, he was administered 0.5 mg of atropine to achieve a maximum heart rate of 137 beats per minute. Repeat EKG showed no significant changes concerning for ischemia. Final echo showed normal LV systolic func tion without regional wall motion. CONCLUSIONS: Negative stress echocardiogram with dobutamine stress, taking patient's heart rate to 1 37 beats per minute. No EKG changes concerning for ischemia at peak exercise sign. Normal heart rat e and blood pressure response to dobutamine. No evidence of [id number] shunting with agitated fredrick ine. /[id number]/MODL
== END 2017-11-24 15:30 | disposition home or self-care (01) ==
LOC: FCATH 13:09 → EDSTATUS 13:30 → FCATH 15:30
PROVIDERS: ATTEND Internal Medicine Gastroenterology
DX: Z01.810 Encounter for preprocedural cardiovascular examination (principal); B18.2 Chronic viral hepatitis C; I25.10 Atherosclerotic heart disease of native coronary artery without angina pectoris
CPT/HCPCS: J0461; J1250

== ENCOUNTER → 2017-11-26 | Outpatient (CLI) | payer OTHER ==
[~2017-11-26] MED LIST changes: -ALBUMIN 25% 50 ML SOLN IV ONE; +IOPAMIDOL (ISOVUE-300) 100 ML BTL ONE; -LIDOCAINE 1% 300 MG/30 ML SDV ONE
== END ==
LOC: CIMAGING 11:19
PROVIDERS: ATTEND Internal Medicine Gastroenterology
DX: B18.2 Chronic viral hepatitis C (principal); K74.60 Unspecified cirrhosis of liver; R18.8 Other ascites; R91.8 Other nonspecific abnormal finding of lung field
CPT/HCPCS: 74160-PO; Q9967

== ENCOUNTER → 2018-01-26 | Outpatient (CLI) | payer OTHER ==
[~2018-01-26] MED LIST changes: +ALBUMIN 25% 100 ML SOLN IV ONE; -IOPAMIDOL (ISOVUE-300) 100 ML BTL ONE; +LIDOCAINE 1% 300 MG/30 ML SDV ONE
== END ==
LOC: FIMAGING 11:44
PROVIDERS: ATTEND Physician Assistant
PROC: 0W9F3ZZ Drainage of Abdominal Wall, Percutaneous Approach (ICD-10-PCS; principal; 2018-01-26)
DX: R18.8 Other ascites (principal); B18.2 Chronic viral hepatitis C
CPT/HCPCS: P9047

== ENCOUNTER → 2018-02-07 | Outpatient (CLI) | payer OTHER | LOC: CIMAGING 13:04 | PROVIDERS: ATTEND Internal Medicine Gastroenterology | DX: R91.8 Other nonspecific abnormal finding of lung field (principal); K74.60 Unspecified cirrhosis of liver; R18.8 Other ascites | CPT/HCPCS: 71250-PO ==

== ENCOUNTER → 2018-02-24 | Outpatient (CLI) | payer OTHER | LOC: FIMAGING 11:58 | PROVIDERS: ATTEND Radiology Diagnostic Radiology | PROC: BW40ZZZ Ultrasonography of Abdomen (ICD-10-PCS; principal; 2018-02-24) | PROC: 0W9G3ZZ Drainage of Peritoneal Cavity, Percutaneous Approach (ICD-10-PCS; principal; 2018-02-24) | DX: K72.10 Chronic hepatic failure without coma (principal); R18.8 Other ascites | CPT/HCPCS: P9047 ==

== ENCOUNTER → 2018-03-15 | Outpatient (CLI) | payer OTHER | LOC: FIMAGING 11:37 | PROVIDERS: ATTEND Physician Assistant | PROC: 0W9G3ZZ Drainage of Peritoneal Cavity, Percutaneous Approach (ICD-10-PCS; principal; 2018-03-15) | DX: R18.8 Other ascites (principal); K72.10 Chronic hepatic failure without coma | CPT/HCPCS: P9047 ==

== ENCOUNTER → 2018-04-22 | Outpatient (CLI) | payer OTHER | LOC: FIMAGING 09:24 | PROVIDERS: ATTEND Physician Assistant | PROC: 0W9G3ZZ Drainage of Peritoneal Cavity, Percutaneous Approach (ICD-10-PCS; principal; 2018-04-22) | DX: R18.8 Other ascites (principal); K72.10 Chronic hepatic failure without coma | CPT/HCPCS: P9047 ==

== ENCOUNTER → 2018-09-19 | Outpatient (CLI) | payer OTHER ==
[~2018-09-19] MED LIST changes: -ALBUMIN 25% 100 ML SOLN IV ONE
== END ==
LOC: FIMAGING 13:18
PROVIDERS: ATTEND Physician Assistant
PROC: 0W9G3ZZ Drainage of Peritoneal Cavity, Percutaneous Approach (ICD-10-PCS; principal; 2018-09-19)
DX: R18.8 Other ascites (principal)

== ENCOUNTER 2018-11-08 14:23 | Observation (INO) | payer OTHER ==
[2018-11-08] MEDS ORDERED: NS 1,000 ML IV ONE (14:58)
--- NOTE | 2018-11-08 15:17 | EDPHY ---
H & P Time Seen by Provider: 11/08/18 14:35 HPI/ROS: Chief complaint. Vomiting blood HPI. Patient is a 57-year-old male with history of liver failure, cirrhosis, ascites presents with complaint of dark blood in his saliva for the past 3 weeks. It occurs especially in the morning and a times it is dark as well as can be fresh bright red blood. He has no blood in his stool. No fever or shortness of breath. Denies cough. Has not been vomiting. Does not know where this blood in his saliva is coming from. He had paracentesis today and had 4.3 L removed. No chest pain. He tells me he has had fluid on his lungs for 3-4 years. He has chronic liver pain. No new or different abdominal pain. No urinary symptoms ROS 10 systems were reviewed and negative with the exception of the elements mentioned in the history of present illness Past Medical/Surgical History: Past medical history is significant for hep C, encephalopathy the, liver failure on transplant list, ulcerative colitis, cirrhosis Social History: , nonsmoker, no alcohol Smoking Status: Never smoked Physical Exam: General Appearance: Alert well-developed male mild distress vital signs are stable Eyes: Pupils equal and round no pallor or injection. ENT, Mouth: Mucous membranes are moist. Respiratory: There are no retractions, lungs are clear to auscultation. Cardiovascular: Regular rate and rhythm. Gastrointestinal: Abdomen is soft with mild tenderness in the right upper quadrant which patient tells me is typical for him. No other abdominal pain. Normal bowel sounds. No masses. Rectal exam shows brown stool Neurological: Awake and alert, sensory and motor exams grossly normal. Skin: Warm and dry, no rashes. Musculoskeletal: Neck is supple nontender. Extremities symmetrical, full range of motion. Psychiatric: Patient is oriented X 3, there is no agitation. Constitutional: Initial Vital Signs Temperature (C) 36.6 C 11/08/18 14:30 Heart Rate 68 11/08/18 14:30 Respiratory Rate 16 11/08/18 14:30 Blood Pressure 128/83 H 11/08/18 14:30 O2 Sat (%) 97 11/08/18 14:30 O2 Delivery Mode Room Air Allergies/Adverse Reactions: No Known Allergies Allergy (Verified 11/08/18 14:27) Home Medications: Medication Instructions Recorded Oxymorphone HCl [Opana] 10 - 20 mg PO 5XD PRN 03/22/15 Lactulose 10 - 20 gm PO DAILY PRN 11/24/16 Levothyroxine [Synthroid 50 mcg 50 mcg PO DAILY06 11/25/16 (*)] Zolpidem Tartrate [Ambien 5MG (*)] 10 - 15 mg PO HS PRN #7 tab 11/29/16 sulfaSALAzine [Azulfidine 500 MG 500 mg PO BID 12/02/16 (*)] Furosemide [Lasix 40 MG (*)] 40 mg PO HS 05/28/17 Furosemide [Lasix 80 MG (*)] 80 mg PO DAILY 05/28/17 Rifaximin [Xifaxan] 550 mg PO BID 05/28/17 Spironolactone [Aldactone] 200 mg PO DAILY 05/28/17 Oxymorphone HCl [Opana ER] 30 mg PO BID 05/29/17 Medical Decision Making - Diagnostics Imaging Results: Imaging Impressions Chest X-Ray 11/08/18 14:59 Impression: 1. Chronic scarring +- new platter atelectasis at the posterior left lung base. 2. Resolved left pleural effusion since November 2016. 3. No pneumonia. Chest x-ray interpreted by me shows chronic scarring with plantar type atelectasis in the posterior left lung base. Resolved left pleural effusion compared to x-ray in November 2016. No pneumonia Procedures: IV normal saline, monitor ED Course/Re-evaluation: On re-evaluation at 4:30 a.m. Patient is stable. The patient, his and I discussed imaging lab results. We discussed treatment plan including recommendation for admission. He expresses understanding and agreement I consulted discussed the case with Dr. Henderson, hospitalist, who agrees to the admission I consulted and discussed the case with Dr. Barrett for Gastroenterology who will see the patient Differential Diagnosis: I am concerned the patient has varices with his history of liver failure, cirrhosis, ascites. He wakes up in the morning with blood in his mouth occasionally bright red and occasionally dark. He has low platelets. Otherwise stable H&H - Data Points Laboratory Results: Laboratory Results 11/08/18 15:00 11/08/18 15:00 11/08/18 11/08/18 11/08/18 15:00 15:00 15:00 WBC 2.46 10^3/uL L 10^3/uL (3.80-9.50) RBC 3.96 10^6/uL L 10^6/uL (4.40-6.38) Hgb 11.8 g/dL L g/dL (13.7-17.5) Hct 35.5 % L % (40.0-51.0) MCV 89.6 fL fL (81.5-99.8) MCH 29.8 pg pg (27.9-34.1) MCHC 33.2 g/dL g/dL (32.4-36.7) RDW 14.5 % % (11.5-15.2) Plt Count 90 10^3/uL L 10^3/uL (150-400) MPV 9.7 fL fL (8.7-11.7) Neut % (Auto) 65.1 % % (39.3-74.2) Lymph % (Auto) 17.9 % % (15.0-45.0) Weston % (Auto) 14.6 % H % (4.5-13.0) Eos % (Auto) 2.0 % % (0.6-7.6) Baso % (Auto) 0.4 % % (0.3-1.7) Nucleat RBC Rel Count 0.0 % % (0.0-0.2) Absolute Neuts (auto) 1.60 10^3/uL L 10^3/uL (1.70-6.50) Absolute Lymphs (auto) 0.44 10^3/uL L 10^3/uL (1.00-3.00) Absolute Monos (auto) 0.36 10^3/uL 10^3/uL (0.30-0.80) Absolute Eos (auto) 0.05 10^3/uL 10^3/uL (0.03-0.40) Absolute Basos (auto) 0.01 10^3/uL L 10^3/uL (0.02-0.10) Absolute Nucleated RBC 0.00 10^3/uL 10^3/uL (0-0.01) Immature Gran % 0.0 % % (0.0-1.1) Immature Gran # 0.00 10^3/uL 10^3/uL (0.00-0.10) Platelet Estimate Not Reported PT 15.3 SEC H SEC (12.0-15.0) INR 1.19 H (0.83-1.16) APTT 32.4 SEC SEC (23.0-38.0) Sodium 137 mEq/L mEq/L (135-145) Potassium 3.8 mEq/L mEq/L (3.5-5.2) Chloride 100 mEq/L mEq/L (97-110) Carbon Dioxide 28 mEq/l mEq/l (22-31) Anion Gap 9 mEq/L mEq/L (6-14) BUN 16 mg/dL mg/dL (7-23) Creatinine 0.8 mg/dL mg/dL (0.7-1.3) Estimated GFR > 60 Glucose 88 mg/dL mg/dL (70-100) Calcium 9.0 mg/dL mg/dL (8.5-10.4) Total Bilirubin 0.7 mg/dL mg/dL (0.1-1.4) Conjugated Bilirubin 0.5 mg/dL mg/dL (0.0-0.5) Unconjugated Bilirubin 0.2 mg/dL mg/dL (0.0-1.1) AST 39 IU/L IU/L (17-59) ALT 31 IU/L IU/L (21-72) Alkaline Phosphatase 96 IU/L IU/L (38-126) Total Protein 7.2 g/dL g/dL (6.3-8.2) Albumin 4.0 g/dL g/dL (3.5-5.0) Lipase < 100 IU/L IU/L (23-300) Stool Occult Bld Scrn 11/08/18 14:55 WBC RBC Hgb Hct MCV MCH MCHC RDW Plt Count MPV Neut % (Auto) Lymph % (Auto) Weston % (Auto) Eos % (Auto) Baso % (Auto) Nucleat RBC Rel Count Absolute Neuts (auto) Absolute Lymphs (auto) Absolute Monos (auto) Absolute Eos (auto) Absolute Basos (auto) Absolute Nucleated RBC Immature Gran % Immature Gran # Platelet Estimate PT INR APTT Sodium Potassium Chloride Carbon Dioxide Anion Gap BUN Creatinine Estimated GFR Glucose Calcium Total Bilirubin Conjugated Bilirubin Unconjugated Bilirubin AST ALT Alkaline Phosphatase Total Protein Albumin Lipase Stool Occult Bld Scrn NEGATIVE (NEGATIVE) Medications Given: Discontinued Medications Sodium Chloride (Ns) 1,000 mls @ 0 mls/hr IV EDNOW ONE; Wide Open PRN Reason: Protocol Stop: 11/08/18 14:59 Last Admin: 11/08/18 15:06 Dose: 1,000 mls Departure - Departure Disposition: [facility] Acute Clinical Impression: Hepatitis C virus Qualifiers: Viral hepatitis chronicity: chronic Hepatic coma status: without hepatic coma Qualified Code(s): B18.2 - Chronic viral hepatitis C Ascites Qualifiers: Ascites type: other type Qualified Code(s): R18.8 - Other ascites Condition: Fair Referrals: Monique Grayson [Primary Care Provider] - As per Instructions
[2018-11-08 15:24] LABS: PLATELET COUNT 90 10^3/uL (150-400)
[2018-11-08 15:34] LABS: INR 1.19 (0.83-1.16); PROTIME(PATIENT) 15.3 SEC (12.0-15.0)
[2018-11-08] MEDS ORDERED: ZOLPIDEM TARTRATE 5 MG TAB PO PRN (17:15)
[2018-11-08] MEDS ORDERED: LACTULOSE 20 GM/30 ML UDCUP PO PRN (18:15)
--- NOTE | 2018-11-08 18:26 | GHP ---
DATE OF ADMISSION: 11/08/2018 CHIEF COMPLAINT: Coughing up blood. HISTORY OF PRESENT ILLNESS: This is a 57-year-old male with history of cirrhosis and hepatitis C who underwent therapeutic paracentesis earlier today, where more than 4 L of ascites was removed. The p atient states he has been compliant with his diuretics. His overall energy level has been low. He h as not noticed any blood in his stool or melena. The patient states, over the past 3 weeks, he has coughed up a coffee-ground appearing substance, as well as some bright red blood on more than 5 occasions. He discussed this with his gastroenterologis t, who instructed him to come to the emergency department for further evaluation and monitoring. PAST MEDICAL HISTORY: 1. Cirrhosis. 2. Chronic narcotic dependence. 3. Hepatitis C. 4. History of community-acquired pneumonia. 5. Ulcerative colitis. 6. Incarcerated hernia. 7. History of pulmonary embolism following knee surgery. 8. Hypothyroidism. HOME MEDICATIONS: Reviewed. Refer to [facility] for details. ALLERGIES: No known drug allergies. SOCIAL HISTORY: Currently sober. He denies any alcohol, tobacco, or illicit drug use. FAMILY HISTORY: Significant for heart disease. REVIEW OF SYSTEMS: Comprehensive 10-point review of systems was done and is negative, except for as mentioned in HPI. PHYSICAL EXAM: VITAL SIGNS: Blood pressure 128/83, pulse 68, respiratory rate 16, O2 saturation 97% on room air. Temperature afebrile. GENERAL: No acute distress. Cachectic. HEAD: Normocephalic, atraumatic. There is some temporal wasting. NECK: Supple. No lymphadenopathy. CARDIOVASCULAR: S1, S2. No JVD. No lower extremity edema. PULMONARY: Lungs are clear. No wheezes, rales, or rhon chi. ABDOMEN: Soft, nontender, nondistended. No guarding or rebound tenderness. Normoactive bowel sounds. EXTREMITIES: No clubbing or cyanosis. NEURO: Cranial nerves 2-12 grossly intact. No foc al motor or sensory deficits. No asterixis. Mood is appropriate. SKIN: Clear. No rashes. DIAGNOSTICS: WBC is 2.46, hemoglobin 11.8, down from 14.3 on last exam May 2017. Hematocrit 35.5, platelets 90. INR 1.19. Sodium 137, potassium 3.8, chloride 100, CO2 of 28, BUN 16, creatinine 0.8, glucose 88. LFTs unremarkable. Stool occult blood was negative. Chest x-ray, which I visualized and personally interpreted, shows chronic scarring or new atelectasis of the posterior left lung base with resolved left pleural effusion from November 2016. N o pneumonia. ASSESSMENT AND PLAN: This is a 57-year-old male with history of hepatitis C and cirrhosis presenting with reported coffee-ground emesis versus hemoptysis with normocytic anemia. Plan: Discussed the case with Dr. Bowen in the emergency department. I discussed the case with Dr Dulce Barrett from [facility], who is recommending further evaluation. The patient will be placed n.p.o. after midnight and will likely undergo esophagogastroduodenoscopy in t he morning. He will be monitored for signs and symptoms of acute bleeding overnight. Will send a bl ood type and screen if this has not already been done. The patient requests to be DNR status. /[id number]/MODL
[2018-11-08] MEDS: OXYMORPHONE HCL 30 MG PO SCH (20:32)
[2018-11-08] MEDS: sulfaSALAzine 500 MG TAB PO SCH (20:33)
[2018-11-08] MEDS: GABAPENTIN 400 MG CAP PO SCH ×2 (20:33→23:41)
[2018-11-08] MEDS: RIFAXIMIN 550 MG TAB PO SCH (20:34)
[2018-11-08] MEDS: OXYMORPHONE HCL 10 MG PO PRN ×2 (21:29→23:50)
[2018-11-09] MEDS: GABAPENTIN 400 MG CAP PO PRN ×2 (05:45→08:57)
[2018-11-09] MEDS ORDERED: LEVOTHYROXINE 50 MCG TAB PO SCH (06:00)
[2018-11-09] MEDS: OXYMORPHONE HCL 10 MG PO PRN (08:52)
[2018-11-09] MEDS: OXYMORPHONE HCL 30 MG PO SCH (08:52)
[2018-11-09] MEDS: RIFAXIMIN 550 MG TAB PO SCH (08:58)
[2018-11-09] MEDS ORDERED: FUROSEMIDE 40 MG TAB PO SCH (09:00)
[2018-11-09] MEDS ORDERED: SPIRONOLACTONE 50 MG TAB PO SCH (09:00)
[2018-11-09] MEDS: sulfaSALAzine 500 MG TAB PO SCH (09:01)
[2018-11-09] MEDS: GABAPENTIN 400 MG CAP PO SCH (09:05)
[2018-11-09] MEDS ORDERED: LR 1,000 ML IV ONE (12:30)
[2018-11-09] MEDS ORDERED: PROPOFOL 200 MG/20 ML VIAL ONE (13:01)
--- NOTE | 2018-11-09 13:01 | PDANEPAE ---
ANE History of Present Illness upper gi bleed ANE Past Medical History - Cardiovascular History Hx Hypertension: No Hx Arrhythmias: No Hx Chest Pain: No Hx Coronary Artery / Peripheral Vascular Disease: No Hx CHF / Valvular Disease: No Hx Palpitations: No - Pulmonary History Hx COPD: No Hx Asthma/Reactive Airway Disease: No Hx Recent Upper Respiratory Infection: No Hx Oxygen in Use at Home: No Hx Sleep Apnea: No Sleep Apnea Screening Result - Last Documented: Negative - Endocrine History Hx Diabetes: No Hypothyroid: Yes Hyperthyroid: No Obesity: no - Renal History Hx Renal Disorders: No - Liver History Hx Hepatic Disorders: Yes Hepatic History Comment: hep c, cirrhosis, asites 4 L taken off 11/08/18, on transplant list 5 years - Neurological & Psychiatric Hx Hx Neurological and Psychiatric Disorders: Yes Neurological / Psychiatric History Comment: 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 in the past - GI History Hx Gastrointestinal Disorders: Yes Gastrointestinal History Comment: gi bleeding - Other Health History Other Health History: low platelet, recent 90,000 - Chronic Pain History Chronic Pain: Yes ANE Review of Systems Review of systems is: negative Review of Systems: - Exercise capacity METS (RN): 2 METS ANE Patient History - Allergies Allergies/Adverse Reactions: No Known Allergies Allergy (Verified 11/08/18 14:27) - Home Medications Home medications: home medication list seen and reviewed Home Medications: Oxymorphone HCl [Opana] 10 - 20 mg PO TID PRN 03/22/15 [Last Taken 11/08/18] Lactulose 10 - 20 gm PO DAILY PRN 11/24/16 [Last Taken 11/07/18] Levothyroxine [Synthroid 50 mcg (*)] 50 mcg PO DAILY06 11/25/16 [Last Taken 10/16] sulfaSALAzine [Azulfidine 500 MG (*)] 500 mg PO BID 12/02/16 [Last Taken ] Furosemide [Lasix 40 MG (*)] 120 mg PO DAILY 05/28/17 [Last Taken 11/08/18] Rifaximin [Xifaxan] 550 mg PO BID 05/28/17 [Last Taken 11/08/18] Spironolactone [Aldactone] 200 mg PO DAILY 05/28/17 [Last Taken 11/08/18] Oxymorphone HCl [Opana ER] 30 mg PO BID 05/29/17 [Last Taken 11/08/18] Gabapentin [Neurontin 400 MG (*)] 400 mg PO DAILY@1400 PRN 11/08/18 [Last Taken Unknown] Gabapentin [Neurontin 400 MG (*)] 800 mg PO BID 11/08/18 [Last Taken 11/08/18] - NPO status NPO Status: no food or drink >8 hours NPO Since - Liquids (Date): 11/08/18 NPO Since - Liquids (Time): 00:00 NPO Since - Solids (Date): 11/08/18 NPO Since - Solids (Time): 00:00 - Anes Hx Anes Hx: no prior problems - Smoking Hx Smoking Status: Never smoked - Alcohol Use Alcohol Use: None - Family Anes Hx Family Anes Hx: none ANE Labs/Vital Signs - Labs Result Diagrams: 11/09/18 05:30 11/08/18 15:00 - Vital Signs Blood Pressure: 121/79 Heart Rate: 67 Respiratory Rate: 12 O2 Sat (%): 94 Height: 182.88 cm Weight: 68.039 kg ANE Physical Exam - Airway Neck exam: FROM Mallampati Score: Class 2 Mouth exam: normal dental/mouth exam - Pulmonary Pulmonary: no respiratory distress, clear to auscultation - Cardiovascular Cardiovascular: regular rate and rhythym, no murmur, rub, or gallop - ASA Status ASA Status: IV ANE Anesthesia Plan Anesthesia Plan: GA with mask Total IV Anesthesia: Yes
[2018-11-09] MEDS ORDERED: LIDOCAINE 2% 5 ML SDV ONE (13:02)
[2018-11-09] MEDS ORDERED: ePHEDrine SULFATE 25 MG/5 ML SYR ONE (13:11)
[2018-11-09] MEDS ORDERED: NALOXONE HCL 0.4 MG/ML INJ IVP PRN (13:25)
--- NOTE | 2018-11-09 13:25 | POSTANESTH ---
Post Anesthetic Evaluation Cardiovascular Status: Normal, Stable Respiratory Status: Normal, Stable Level of Consciousness/Mental Status: Can Participate in Eval Pain Control: Adequate, Prn Tx Ordered Nausea/Vomiting Control: Adequate, Prn Tx Ordered Complications Possibly Related to Anesthesia: None Noted
[2018-11-09] MEDS ORDERED: GABAPENTIN 400 MG CAP PO PRN (14:00)
[2018-11-09 14:46] VITALS: BP 109/67
--- NOTE | 2018-11-09 14:49 | ASMTCMCOM ---
CM Note CM Note Notes: Pt has history of cirrrhosis and Hepatitis C. Pt has history of alcohol use but is currently sober. Pt's is MDPOA, Fadia. Pt does not have orders for PT/OT. Pt esophagogastrodueodenscopy today. Pt plan likely independent, no needs identified at this time. CM available if plan changes. Plan: Independent. Date Signed: 11/09/2018 02:48 PM Electronically Signed By:NICKOLAS Nguyen
--- NOTE | 2018-11-09 16:01 | ASDISCHSUM ---
Discharge Information Plan Status:Home with No Needs Medically Cleared to Leave: Discharge Date:11/09/2018 03:40 PM CM D/C Disposition:Home, Routine, Self-Care ADT D/C Disposition:Home, Routine, Self-Care Projected Discharge Date:11/09/2018 12:00 AM Transportation at D/C: Discharge Delay Reason: Follow-Up Date:11/09/2018 12:00 AM Discharge Slot: Final Diagnosis: Placement Information Patient Contact Information Contact Name:GUICHO Relationship: Address:[address] Work Phone: City:[facility] Phone: [facility]/Zip Code:[place] [address] Email: Financial Information Financial Class:Tabitha [employer] Primary Plan Desc[facility] Primary Plan Number:[id number] Secondary Plan Desc:MEDICARE INPATIENT Secondary Plan Number:[id number] Assessment Information LACE LACE Length of stay for Answers: Less than 1 day current admission Comorbidities - select Answers: Moderate or severe liver all that apply or renal disease Opioid dependence / Chronic pain Other Notes: Hep C; Ulcerative colitis; Cirrhosis # of Emergency department Answers: 1-2 visits in the last 6 months Social determinants Answers: History of substance abuse (ETOH, street drugs, prescription drugs, etc.) Score: 13 Date Signed: 11/09/2018 03:59 PM Electronically Signed By:NICKOLAS Nguyen [facility] CM Progress Note CM Note CM Note Notes: Pt has history of cirrrhosis and Hepatitis C. Pt has history of alcohol use but is currently sober. Pt's is MDPOA, Fadia. Pt does not have orders for PT/OT. Pt esophagogastrodueodenscopy today. Pt plan likely independent, no needs identified at this time. CM available if plan changes. Plan: Independent. Date Signed: 11/09/2018 02:48 PM Electronically Signed By:NICKOLAS Nguyen Intervention Information Intervention Type:*Incorrect Registration Date of Service:11/08/2018 09:23 PM Patient Type:Observation Staff Member:NATHAN Baptiste, [facility] Hours: Discipline: Severity: Comment: Intervention Type:*GANN-Signed Date of Service:11/09/2018 01:53 PM Patient Type:Observation Staff Member:Mikey Guevara Hours: Discipline: Severity: Comment:
--- NOTE | 2018-11-09 16:02 | ASMTDCNOTE ---
Case Management Discharge Discharge Order Complete? Answers: Yes Patient to Obtain Answers: via Family Medications Transportation Arranged Answers: Family/Friends Discharge Comments Notes: Pt being discharged independently. No CM needs identified at this time. Date Signed: 11/09/2018 04:02 PM Electronically Signed By:NICKOLAS Nguyen
--- NOTE | 2018-11-09 17:44 | GDS ---
DISCHARGE DIAGNOSES: 1. History of hepatitis C. 2. Cirrhosis. 3. Hemoptysis. CONSULTATIONS: Gastroenterology. STUDIES AND PROCEDURES DONE: EGD. PHYSICAL EXAM: GENERAL: The patient is alert. VITAL SIGNS: Afebrile at 36.5, pulse 64, respiratory rate 16, blood pressure is 109/67, he is saturating 97% on room air. [facility]. HOSPITAL COURSE: The patient is a 57-year-old male who presented to the emergency room with complain ts of coffee-ground emesis. He was evaluated during this hospitalization and received a consultation from Gastroenterology. An EGD was performed with no identifiable source of bleeding. His coffee-gr ound emesis has stopped. He is tolerating a regular diet. He is eager to be discharged home. He wi ll be discharged with followup in the outpatient setting. He has history of hepatitis C and cirrhosi s, which appears to be stable at the time of disposition. DISCHARGE MEDICATIONS: Please refer to EMR form. I have not adjusted any of the patient's previousl y prescribed home medications to the best of my knowledge. Follow-up will be with his primary care Dr. Monique costello. /[id number]/MODL
--- NOTE | 2018-11-09 18:28 | GCON ---
DATE OF CONSULTATION: 11/09/2018 CHIEF COMPLAINT: Coffee-ground possible emesis. HPI: I am asked to see this patient in consultation by Dr. Henderson for chief complaint of coughing up blood. The patient is a 57-year-old with underlying cirrhosis and hepatitis C. He does have portal hypertension with ascites and for the last several weeks he has been noting dark blood coffee-ground like material in his mouth. However, he denies any actual nausea, vomiting. He has had no melenic s tools. No blood in his stools. He does have some abdominal pain, but just recently had a paracentes is. He had an upper endoscopy a year ago that showed no varices at that time, but did have some prob able portal gastropathy. He has been seen by our physician preschool assistant teacher, Yadi Jimenez, who advised he go to the emergency room. Overnight, he has done well. His hematocrit remained stable. ALLERGIES: No known drug allergies. MEDICINES: From home, he is on gabapentin, Lasix, sulfasalazine, Ambien, Aldactone, Xifaxan, Oxymorp gilda, Synthroid, and lactulose. PAST MEDICAL HISTORY: Chronic hepatitis C, he has cirrhosis, chronic narcotic dependence, recent acq uired pneumonia, history of ulcerative colitis, history of pulmonary embolism, hypothyroidism. SOCIAL HISTORY: He does say he drinks alcohol occasionally. FAMILY HISTORY: Negative for liver disease. REVIEW OF SYSTEMS: I performed a complete review of systems which is negative except for the pertine nt positives, negatives noted above in HPI. PHYSICAL EXAM: VITAL SIGNS: Afebrile at 36.6, BP is stable at 157/70, pulse is in the 50s. CONSTITU TIONAL: Alert and oriented. EYES: No scleral icterus. HEENT: No oral lesions. CARDIOVASCULAR: Regu lar rhythm. CHEST: Clear to auscultation. ABDOMEN: Slightly distended, soft, but no rebound. NEURO LOGIC: Nonfocal. No asterixis. SKIN: No lesions. LABORATORY DATA: On admission, his white count was 2.46, H and H were 11.8 and 35.6, platelets low a t 90. Today, his H and H are 12.7 and 38.3. Coags are protime of 15.3 with INR 1.19. BUN, creatini ne are normal at 16 and 0.8. LFTs within normal limits. Stool test was heme negative. ASSESSMENT: The patient with coughing up coffee-ground material, with he notes dark old blood in his mouth. However, it is not clear that he is having a GI bleed. Certainly not having significant GI bleed given that he is hemodynamically stable. His hematocrit actually increased overnight and he is heme-negative, possible he may have had a subacute bleed, but I am more suspicious that the blood ma y be coming from source other than his esophagus or stomach. Of concern though is patient does have underlying cirrhosis with other signs of portal hypertension including ascites, so could be at risk f or esophageal varices or portal gastropathy. The plan was for him to have an upper endoscopy next mo nth, but given the current situation, I would recommend upper endoscopy this admission to rule out an upper GI bleed and then consider other sources for blood in his mouth. Overall patient would be hig h risk for endoscopy given his cirrhosis and low platelets. Therefore, will need to do this with ane sthesia. Further recommendations to follow. Thank you for this consult. /[id number]/MODL
--- NOTE | 2018-11-11 09:51 | PDGENHP ---
History & Physical Chief Complaint: blood in mouth History of Present Illness: liver diease Relevant Physical Exam: cv [id number] nl. tanya CTA. abd + bs soft Cardiorespiratory Assessment: [id number]
== END 2018-11-09 15:40 | disposition home or self-care (01) ==
LOC: INTOOBSV 16:41 → F3E 18:01
PROVIDERS: ADMIT Family Medicine; ATTEND Family Medicine
PROC: 0DJ08ZZ Inspection of Upper Intestinal Tract, Via Natural or Artificial Opening Endoscopic (ICD-10-PCS; principal; 2018-11-09 13:00)
DX: K74.60 Unspecified cirrhosis of liver (principal); R04.2 Hemoptysis; B18.2 Chronic viral hepatitis C; E86.9 Volume depletion, unspecified; K76.6 Portal hypertension; K72.90 Hepatic failure, unspecified without coma; F11.20 Opioid dependence, uncomplicated; E03.9 Hypothyroidism, unspecified; K51.90 Ulcerative colitis, unspecified, without complications; Z86.711 Personal history of pulmonary embolism; Z82.49 Family history of ischemic heart disease and other diseases of the circulatory system; Z76.82 Awaiting organ transplant status
CPT/HCPCS: 43235; 71046; 96360; 99285; G0378; J2704

== ENCOUNTER → 2018-11-08 | Outpatient (CLI) | payer OTHER ==
[~2018-11-08] MED LIST changes: +ALBUMIN 25% 100 ML SOLN IV ONE
== END ==
LOC: FIMAGING 11:32
PROVIDERS: ATTEND Physician Assistant
DX: R18.8 Other ascites (principal); K72.10 Chronic hepatic failure without coma
CPT/HCPCS: P9047

== ENCOUNTER → 2019-02-10 | Outpatient (CLI) | payer MEDICAID, OTHER ==
[~2019-02-10] MED LIST changes: -ALBUMIN 25% 100 ML SOLN IV ONE
== END ==
LOC: FIMAGING 10:34
PROVIDERS: ATTEND Physician Assistant
PROC: 0W9G30Z Drainage of Peritoneal Cavity with Drainage Device, Percutaneous Approach (ICD-10-PCS; principal; 2019-02-10)
DX: R18.8 Other ascites (principal)

== ENCOUNTER → 2019-03-17 | Outpatient (CLI) | payer OTHER ==
[~2019-03-17] MED LIST changes: +ALBUMIN 25% 100 ML SOLN IV ONE
== END ==
LOC: FIMAGING 09:37
PROVIDERS: ATTEND Physician Assistant
PROC: BW40ZZZ Ultrasonography of Abdomen (ICD-10-PCS; principal; 2019-03-17)
PROC: 0W9G3ZZ Drainage of Peritoneal Cavity, Percutaneous Approach (ICD-10-PCS; principal; 2019-03-17)
DX: K72.10 Chronic hepatic failure without coma (principal); R18.8 Other ascites; M62.81 Muscle weakness (generalized)
CPT/HCPCS: 49083; P9047

== ENCOUNTER → 2019-05-26 | Outpatient (CLI) | payer OTHER | LOC: FIMAGING 09:32 ==